=== PATIENT | female | born 1990 | race Caucasian/White ===

== ENCOUNTER 2018-07-31 09:37 | Outpatient (REF) | payer BC, SELFPAY ==
--- NOTE | 2018-07-31 08:30 | PAPFT_PTH ---
PATIENT: Concepcion Barksdale LOC: [facility]N U#:[id number] AGE/SX: 27/F ROOM: RE07/31/[address]: Gogo Staton : 1990 BED: DIS: 07/31/2018 SPEC #: [id number] RECD: 07/31/18 13:08 STATUS: GALINDO REQ #: [id number] MICHI: 07/31/18 08:[address]: Gogo Staton DEPT: [facility] Cytology RECD BY: Lizbeth Vogt Tissues: 1 - CX/ENDOCX FOR PAP SMEARS Procedures: PAP THIN PREP/UVM Screening Comments: [id number]
== END 2018-07-31 09:57 ==
LOC: NCHCN 09:37
PROVIDERS: PCP Nurse Practitioner Family; Visit Provider Nurse Practitioner Family
DX: Z00.00 Encounter for general adult medical examination without abnormal findings (principal); Z12.4 Encounter for screening for malignant neoplasm of cervix
CPT/HCPCS: 88142

== ENCOUNTER 2019-02-04 11:47 | Outpatient (CLI) | payer BC, SELFPAY ==
[2019-02-04 14:12] LABS: HCG Quant, Pregnancy 8311 mIU/mL (1-3)
== END 2019-02-04 12:07 ==
PROVIDERS: PCP Nurse Practitioner Family; Visit Provider Obstetrics & Gynecology
DX: O20.9 Hemorrhage in early pregnancy, unspecified (principal)
CPT/HCPCS: 36415; 86850; 86900; 86901; 84702

== ENCOUNTER 2019-02-05 09:22 | Outpatient (CLI) | payer BC, SELFPAY ==
--- NOTE | 2019-02-05 12:30 | DI.US_ITS ---
EXAM: US OB TRANSVAGINAL CLINICAL HISTORY: rule out ectopic HCG 8311 O20.9 HEMORRHAGE IN EARLY . TECHNIQUE: Ultrasound performed using standard protocol. COMPARISON: No exams were available for comparison FINDINGS: The uterus measures 8.3 x 4.7 x 5.7 cm. Right ovary is not seen. The left ovary measures 2.8 x 1.4 x 1.7 cm. Note is made of hemorrhagic material in the uterus which appears acoustically heterogeneous and measures 5.6 x 2.1 x 4.6 cm. There is a question regarding a corpus luteal cyst in the left ova ry measuring 2 x 1.5 x 1.6 cm. There is no acoustical evidence of ectopic . There is no franco dence of free pelvic fluid. IMPRESSION: Heterogeneous densities are demonstrated in the endometrial cavity, presumably representing blood. Th ere is no evidence of a viable fetus. There is no evidence of an ectopic these findings to be correlated with the HCG levels.
== END 2019-02-05 09:42 ==
PROVIDERS: PCP Nurse Practitioner Family; Visit Provider Obstetrics & Gynecology
DX: O20.9 Hemorrhage in early pregnancy, unspecified (principal); N83.12 Corpus luteum cyst of left ovary
CPT/HCPCS: 76817

== ENCOUNTER 2019-02-06 12:20 | Outpatient (CLI) | payer BC, SELFPAY ==
[2019-02-06 15:04] LABS: HCG Quant, Pregnancy 4774 mIU/mL (1-3)
== END 2019-02-06 12:40 ==
PROVIDERS: PCP Nurse Practitioner Family; Visit Provider Obstetrics & Gynecology
DX: O03.9 Complete or unspecified spontaneous abortion without complication (principal)
CPT/HCPCS: 36415; 84702

== ENCOUNTER 2019-02-12 09:38 | Outpatient (CLI) | payer BC, SELFPAY ==
[2019-02-12 12:32] LABS: HCG Quant, Pregnancy 1482 mIU/mL (1-3)
== END 2019-02-12 09:58 ==
PROVIDERS: Obstetrics & Gynecology; PCP Nurse Practitioner Family; Visit Provider Obstetrics & Gynecology
DX: O46.8X1 Other antepartum hemorrhage, first trimester (principal)
CPT/HCPCS: 36415; 84702

== ENCOUNTER 2020-04-26 03:20 | Outpatient (CLI) | payer BC, SELFPAY ==
[2020-04-26 09:15] LABS: HCG Quant, Pregnancy 463 mIU/mL (1-3); TSH 3.84 uIU/mL (0.36-3.74)
== END 2020-04-26 03:40 ==
PROVIDERS: PCP Nurse Practitioner Family; Visit Provider Nurse Practitioner Family
DX: N92.6 Irregular menstruation, unspecified (principal); Z86.39 Personal history of other endocrine, nutritional and metabolic disease
CPT/HCPCS: 36415; 84439; 84443; 84702

== ENCOUNTER 2020-05-22 03:49 | Outpatient (CLI) | payer BC, SELFPAY ==
[2020-05-22 09:02] LABS: TSH (W/Ref FT4) 3.65 uIU/mL (0.36-3.74)
== END 2020-05-22 04:09 ==
PROVIDERS: PCP Nurse Practitioner Family; Visit Provider Obstetrics & Gynecology Gynecology
DX: R79.89 Other specified abnormal findings of blood chemistry (principal); Z32.01 Encounter for pregnancy test, result positive
CPT/HCPCS: 36415; 84443

== ENCOUNTER 2020-05-31 19:29 | Outpatient (REF) | payer BC, SELFPAY ==
[2020-05-31 17:33] LABS: *AMPHETAMINES SCREEN URINE Negative (Negative); *BARBITURATES SCREEN URINE Negative (Negative); *BENZODIAZEPINES SCREEN URINE Negative (Negative); Cannabinoids THC Negative (Negative); Cocaine Screen,Urine Negative (Negative); METHADONE URINE SCREEN Negative (Negative); OPIATES URINE SCREEN Negative (Negative)
[2020-05-31 17:46] LABS: Tricyclic Antidepressants Negative (Negative)
[2020-06-01 15:46] LABS: Chlamydia Result Negative (Negative); GC Result Negative (Negative)
[2020-06-06 11:59] LABS: Buprenorphine Negative; Norbuprenorphine Negative
== END 2020-05-31 19:49 ==
LOC: LBN 19:29
PROVIDERS: PCP Nurse Practitioner Family; Visit Provider Advanced Practice Midwife
DX: Z34.91 Encounter for supervision of normal pregnancy, unspecified, first trimester (principal); Z11.3 Encounter for screening for infections with a predominantly sexual mode of transmission
CPT/HCPCS: 80307; 87491; 87591; 87086

== ENCOUNTER 2020-06-05 08:03 | Outpatient (CLI) | payer BC, SELFPAY ==
[2020-06-05 09:45] LABS: Kit/Specimen SENT
[2020-06-05 10:11] LABS: Abs Immature Grans 0.03 10^3/uL (0.0-0.06); Absolute Basophil Count 0.02 10^3/uL (0.0-0.2); Absolute Eosinophil Count 0.18 10^3/uL (0.0-0.7); Absolute Lymphocyte Count 2.44 10^3/uL (1.2-3.4); Absolute Monocyte Count 0.58 10^3/uL (0.1-0.8); Absolute Neutrophil Count 4.66 10^3/uL (1.2-6.7); Basophils % 0.3; Eosinophils % 2.3; HGB 12.7 g/dL (11.2-15.7); Immature Grans % 0.4; Lymphocytes % 30.8; MCH 31.2 pg (27.0-33.0); MCHC 35.3 % (32.0-36.0); MCV 88.5 fL (80-95); MPV 10.1 fL (8.0-11.0); Monocytes % 7.3; Neutrophils % 58.9; Nucleated RBC 0 %; Platelet Count 259 10^3/uL (130-400); RBC 4.07 10^6/uL (3.93-5.22); RDW-SD 38.5 fL; WBC 7.91 10^3/uL (4.4-10.8)
[2020-06-06 10:07] LABS: Hepatitis C Ab w Rflx HCV PCR Negative (Negative)
[2020-06-06 10:30] LABS: Rubella IgG Ab (UVM) Positive (See Note); Varicella IgG Antibody Positive (See Note)
[2020-06-06 11:41] LABS: Hepatitis B Surface Ag Negative (Negative)
[2020-06-06 12:32] LABS: HIV-1/2 Ag & Ab Screen Negative (Negative)
[2020-06-07 10:48] LABS: Syphilis Total Ab w/Reflex Nonreactive (Nonreactive)
[2020-06-12 00:54] LABS: Result Summary NEGATIVE; Specimen WB Whole Blood
[2020-06-12 15:16] LABS: Specimen WB Whole Blood
== END 2020-06-05 08:23 ==
PROVIDERS: PCP Nurse Practitioner Family; Visit Provider Advanced Practice Midwife
DX: Z34.91 Encounter for supervision of normal pregnancy, unspecified, first trimester (principal); Z36.89 Encounter for other specified antenatal screening; Z11.4 Encounter for screening for human immunodeficiency virus [HIV]; Z11.59 Encounter for screening for other viral diseases; Z01.84 Encounter for antibody response examination
CPT/HCPCS: 36415; 81329; 86787; 86803; 86850; 86900; 86901; 87340; 87389; 81220; 85025; 86762; 86780

== ENCOUNTER 2020-07-28 03:44 | Outpatient (CLI) | payer BC, SELFPAY ==
--- NOTE | 2020-07-28 07:00 | DI.US_ITS ---
EXAM: US OB 2-3 TRIMESTER CLINICAL HISTORY: 18 wk anatomy survey,Z34.90. TECHNIQUE: Transabdominal obstetrical ultrasound performed. COMPARISON: No exams were available for comparison FINDINGS:: Sonographic images demonstrate a single intrauterine gestation in variable position. Placenta: Posterior and fundal and grade 1 Predicted gestational age: 18 weeks 0 days Estimated date of delivery 29 December 2020: . BIOMETRIC DATA: heart rate motion is Dopplered at: 150 BPM. BPD: 40mm = 18+ 1 weeks HC: 151mm = 18+ 1 weeks AC: 127mm = 18+ 2 weeks FL: 26mm = 17+ 6 weeks EFW: 224 Grams = 51 % Sonographically assessed composite gestational age: 18+ 1 weeks Estimated date of delivery based on this ultrasound is: 28 December 2020 Amniotic fluid:. Amount of fluid is visually within normal limits. Anatomy survey: The heart, stomach, bladder, kidneys, brain, face and spine appear normal. Bot h upper and lower extremities appear normal. Three-vessel cord and cord insertion are unremarkable. IMPRESSION: size and weight are within the expected range. Normal size for dates. No abnormalities are detected. DATA REPOSITORY:
== END 2020-07-28 04:04 ==
PROVIDERS: PCP Nurse Practitioner Family; Visit Provider Advanced Practice Midwife
DX: Z34.92 Encounter for supervision of normal pregnancy, unspecified, second trimester (principal)
CPT/HCPCS: 76805

== ENCOUNTER 2020-10-06 03:12 | Outpatient (CLI) | payer BC, SELFPAY ==
[2020-10-06 10:58] LABS: HCT 32.1 % (36.0-46.0); HGB 10.8 g/dL (11.2-15.7); MCHC 33.6 % (32.0-36.0); MCV 95.3 fL (80-95); MPV 9.6 fL (8.0-11.0); Platelet Count 223 10^3/uL (130-400); RBC 3.37 10^6/uL (3.93-5.22); RDW 13.7 % (11.7-14.6); RDW-SD 47.9 fL; WBC 10.33 10^3/uL (4.4-10.8)
[2020-10-06 11:06] LABS: Glucose,1 Hr (Glucola) 137 mg/dL (80-140)
== END 2020-10-06 03:13 | disposition home or self-care (01) ==
LOC: LBO 03:12
PROVIDERS: Advanced Practice Midwife; PCP Nurse Practitioner Family; Visit Provider Advanced Practice Midwife
DX: Z34.93 Encounter for supervision of normal pregnancy, unspecified, third trimester (principal); Z3A.28 28 weeks gestation of pregnancy
CPT/HCPCS: 36415; 82950; 85027

== ENCOUNTER 2020-10-18 03:17 | Outpatient (CLI) | payer BC, SELFPAY ==
[2020-10-18 09:15] LABS: Glucose 1 Hour 151 mg/dL
[2020-10-18 10:54] LABS: Glucose 3 Hour 67 mg/dL
== END 2020-10-18 03:18 | disposition home or self-care (01) ==
PROVIDERS: PCP Nurse Practitioner Family; Visit Provider Advanced Practice Midwife
DX: Z34.93 Encounter for supervision of normal pregnancy, unspecified, third trimester (principal); Z3A.30 30 weeks gestation of pregnancy
CPT/HCPCS: 36415; 82951

== ENCOUNTER 2020-12-01 16:07 | Outpatient (REF) | payer BC, SELFPAY ==
[2020-12-01 17:05] LABS: *AMPHETAMINES SCREEN URINE Negative (Negative); *BARBITURATES SCREEN URINE Negative (Negative); *BENZODIAZEPINES SCREEN URINE Negative (Negative); Cannabinoids THC Negative (Negative); Cocaine Screen,Urine Negative (Negative); METHADONE URINE SCREEN Negative (Negative); OPIATES URINE SCREEN Negative (Negative)
[2020-12-01 17:06] LABS: Tricyclic Antidepressants Negative (Negative)
[2020-12-07 09:46] LABS: Buprenorphine Negative ng/mL (Cutoff: 5.0)
== END 2020-12-01 16:08 | disposition home or self-care (01) ==
LOC: LBN 16:07
PROVIDERS: PCP Nurse Practitioner Family; Visit Provider Advanced Practice Midwife
DX: Z34.93 Encounter for supervision of normal pregnancy, unspecified, third trimester (principal); Z36.85 Encounter for antenatal screening for Streptococcus B; Z3A.36 36 weeks gestation of pregnancy
CPT/HCPCS: 80307; 87081

== ENCOUNTER 2021-01-04 11:48 | Outpatient (CLI) | payer BC, SELFPAY ==
[2021-01-04 11:57] VITALS: BP 133/92; PULSE 81; TEMP 36.7
[2021-01-04 11:59] VITALS: BP 133/87; PULSE 81
[2021-01-04 12:00] VITALS: BP 133/92; PULSE 81
[2021-01-04 12:05] VITALS: BP 139/85; PULSE 83
[2021-01-04 12:16] VITALS: BP 139/85; PULSE 83; TEMP 37.3
[2021-01-04 12:50] LABS: HCT 36.9 % (36.0-46.0); HGB 12.3 g/dL (11.2-15.7); MCH 31.1 pg (27.0-33.0); MCHC 33.3 % (32.0-36.0); MCV 93.2 fL (80-95); MPV 10.1 fL (8.0-11.0); Platelet Count 199 10^3/uL (130-400); RBC 3.96 10^6/uL (3.93-5.22); RDW 13.9 % (11.7-14.6); RDW-SD 47.4 fL; WBC 11.21 10^3/uL (4.4-10.8)
[2021-01-04 13:04] LABS: ALT 15 U/L (14-59); AST 13 U/L (15-37); Albumin 2.8 g/dL (3.4-5.0); Alkaline Phosphatase 127 U/L (46-116); Anion Gap 8.5 mmol/L (3-11); BUN 9 mg/dL (7-18); Bilirubin, Total 0.3 mg/dL (0.2-1.0); CO2 25.5 mmol/L (21.0-32.0); CREATININE 0.7 mg/dL (0.55-1.02); Calcium 9.3 mg/dL (8.5-10.1); Chloride 105 mmol/L (98-107); Glucose 80 mg/dL (74-106); Potassium 4.3 mmol/L (3.5-5.1); Sodium 139 mmol/L (136-145); Total Protein 6.7 g/dL (6.4-8.2); Uric Acid 5.7 mg/dL (2.6-6.0)
[2021-01-04 13:44] LABS: COMMENT (LAB VIEW ONLY) 80.25 mg/dL; PROTEIN 11.1 mg/dL; Prot/Crea Ur Ratio 0.13
--- NOTE | 2021-01-04 14:07 | PDOC.NST_ITS ---
Date of service: 01/04/21 Time of Service: 14:07 NST Evaluation Reason for NST Reasons for Nonstress Test: POSTDATES Gestational Age Gestational Age in Weeks and Days: 40 Weeks and 6Days Test and Monitor Explained Test/Monitor Explained: Test Explained, Monitor Explained and Patient Verbalized Understanding Vital Signs Blood Pressure: 139/85 Pulse: 83 Temperature: 99.1 F NST Information Date on Monitor: 01/04/21 Time on Monitor: 12:00 Date off Monitor: 01/04/21 NST Interventions: None NST Evaluation Patient States Movement: Present FHR Baseline: 130 Variability: Moderate 6-25 bpm Accelerations: 15x15 Decelerations: None NST Results: Reactive Note NST Note Note: Concepcion is here for a post dates NST and KILEY. KIELY is 11.9 by bedside US performed by Jovita Aldana.P 139/85. Preeclampsia labs drawn. SVE 1.5/60/- 2. Induction of labor planned for 01/07. NST Reviewed and Verified by: Puja Reyes
[2021-01-04 14:10] VITALS: BP 139/85; PULSE 83; TEMP 37.3
== END 2021-01-04 12:46 | disposition home or self-care (01) ==
LOC: BCD 11:48 → OBS 11:50
PROVIDERS: PCP Nurse Practitioner Family; Visit Provider Advanced Practice Midwife
DX: O48.0 Post-term pregnancy (principal); Z3A.40 40 weeks gestation of pregnancy
CPT/HCPCS: 59025; 80053; 85027; 82565; 84156; 84550

== ENCOUNTER 2021-01-07 08:52 | Observation (INO) | payer BC, SELFPAY ==
[2021-01-07 07:57] VITALS: BP 142/84; PULSE 86; TEMP 36.6
--- NOTE | 2021-01-07 08:55 | W.PM.OBHPL1 ---
Date of service: 01/07/21 Time of Service: 08:55 Assessment and Plan Assessment and plan (1) Elective induction of labor planned: Status: Acute Assessment and plan: Admit to observation at the Center. Cook balloon inserted without difficulty and 60 cc infused in each balloon. Concepcion tolerated this well. Plan was made with Concepcion to remain on the monitor for 1 hour post- insertion and then return home to await active labor. She was instructed to return to the center in 12 hours if the balloon is still in place. Protein creatinene ratio sent. Will continue to monitor B.P. every 15 minutes post-insertion. Plan reviewed with Dr. Lindsay who is the on-call MD today. Will re-assess cervical change this evening. OB-HPI Labor/Delivery History of Present Illness Reason for Visit: NST Chief Complaint: Scheduled Induction of Labor (Outpatient cervical ripening) Indication for Induction: Post Date (41+3 weeks). BURT Calculator Estimated Delivery Date Method Current WG Current Estimate 12/29/20 LMP (Certain) 41w 2d Other Estimates 01/03/21 Ultrasound #1 40w 4d Comments: Concepcion is here for cervical ripening with her Tyson. Options for cervical ripening methods discussed and Concepcion opts for outpatient cervical ripening with the Cook balloon. KILEY 11.9 and Preecampsia panel neg 01/04. History of Present Expected Delivery Route/Plan - CNM FOB/ - Tyson Barksdale (his first baby) BB no circ GBS neg Specific Issues/Plan 1. Desires [place], SMA, CF - drawn 06/05/19 1a. [place] result low prob x3, male 1b. CF and SMA carrier screen negative 2. Desires LC consult after 36 wks 3. Not planning to get COVID vaccine, also declines TDaP and flu shots 4. Glucola at 28 wks 137, 3 hr GTT nml x4 PFSH Medical History (Updated 01/07/21 @ 09:01 by Puja Reyes CNM) Positive test Seasonal allergic rhinitis Family History (Updated 05/31/20 @ 13:51 by Puja Reyes CNM) Mother Colon cancer Mets to liver Thyroid disease Graves disease - resolved spontaneously Father Hypertension Heart disease Lewy body dementia COPD (chronic obstructive pulmonary disease) Brother Thyroid disease paternal 1/2 brother Social History Smoking/Tobacco Use Status: Never Smoking risk assessment performed?: Yes Drug use: Never Female Reproductive History Menstrual control method: none History History 3 Para 0 Hx # Term Pregnancies 0 Multiple births 0 Hx # Pregnancies 0 Ectopic pregnancies 0 AB induced 0 Hx Number of Living Children 0 AB spontaneous 2 Meds Allergies and Home Medications Allergies Allergy/AdvReac Type Severity Reaction Status Date / Time erythromycin base Allergy Severe SHORTNESS Verified 12/27/20 15:10 [Erythromycin Base] OF BREATH, SHARP SHOOTING PAINS NSAIDS (Non-Steroidal Allergy Severe Anaphylaxsi Verified 12/27/20 15:10 Anti-Inflamma s thimerosal Allergy Intermediate SHOOTING Verified 12/27/20 15:10 PAINS, SHORTNESS OF BREATH, SWELLING Home Medications Medication Instructions Recorded Confirmed Type epinephrine [Epipen] 0.3 mg IM 08/24/12 12/21/20 History prenat.vits,elio,eom-vvle-vpzko 1 tab PO DAILY 08/10/19 12/21/20 History Exam Physical Exam Vital Signs Reviewed: Yes Constitutional Constitutional: no acute distress Detailed Labor and Delivery Exam Dilation: 2 Effacement (%): 75 station: -1 Cervix position: posterior Consistency: soft Villa Score: Cervical Points Exam 0 1 2 3 Dilation Closed 1-2cm 3-4 cm 5-6cm Effacement 0-30% 40-50% 60-70% 80% Consistency Firm Medium Soft Station -3 -2 -1,0 +1,+2 Position Posterior Mid Anterior Amniotic Membrane Status: Intact Contraction Frequency(min): occasional Contraction Duration(sec): 50 Contraction Intensity: Mild Fetus A Heart Rate Baseline: 130 Monitor Accelerations: 15 X 15 Monitor Decelerations: None Variability: Moderate (6-25 BPM) Presentation: Cephalic Categories: Category I Risk Assessment Risk for Shoulder Dystocia Historical/Initial OB: POSITIVE FOR: Pre- BMI>30; NEGATIVE FOR: Pelvic Abnormality, Previous Shoulder Dystocia or Previous Macrosomia 40 Weeks: POSTIVE FOR: Maternal Weight Gain >40lb and Post Dates; NEGATIVE FOR: EFW> 4500 gms Increased Risk?: Yes Delivery Plan @ 36wks: NVD planned, BMI discussed.KH Delivery Plan @ 40 wks: cervical ripening at 41 +3 weeks Risk for Pre-Eclampsia Yes, if one or more: NEGATIVE FOR: Hx Pre-E/Gest HTN, Chronic HTN, Multiple Gestation, Pre-gestational DM, Renal Disease, Systemic Lupus or APA Syndrome Yes, if 2 or more: POSITIVE FOR: Nulliparity; NEGATIVE FOR: Age>= 35 yrs, >10yr btwn pregnancies, BMI>30, ethinicty, Mother/Sister w/ Pre-E or Previous IUGR Risk for Post- Hemorrhage Initial: NEGATIVE FOR: Multiple Gestation, Previous PPH, Known Clotting Deficiency, Grand Multiparity or Anticoagulation At Risk?: No Risks Reviewed Risks Reviewed Upon Admission: Yes
[2021-01-07 09:08] VITALS: BP 142/97; PULSE 74
[2021-01-07 09:23] VITALS: BP 133/86; PULSE 75
[2021-01-07 09:38] VITALS: BP 140/84; PULSE 80
[2021-01-07 09:53] VITALS: BP 131/77; PULSE 74
[2021-01-07 10:01] LABS: HCT 34.4 % (36.0-46.0); HGB 11.5 g/dL (11.2-15.7); MCH 31.2 pg (27.0-33.0); MCHC 33.4 % (32.0-36.0); MCV 93.2 fL (80-95); MPV 10.1 fL (8.0-11.0); Platelet Count 184 10^3/uL (130-400); RBC 3.69 10^6/uL (3.93-5.22); RDW 13.9 % (11.7-14.6); RDW-SD 47.2 fL; WBC 11.71 10^3/uL (4.4-10.8)
[2021-01-07 10:39] LABS: ALT 17 U/L (14-59); AST 16 U/L (15-37); Albumin 2.7 g/dL (3.4-5.0); Alkaline Phosphatase 131 U/L (46-116); Anion Gap 8.2 mmol/L (3-11); BUN 11 mg/dL (7-18); Bilirubin, Total 0.3 mg/dL (0.2-1.0); CO2 24.8 mmol/L (21.0-32.0); CREATININE 0.8 mg/dL (0.55-1.02); Calcium 8.8 mg/dL (8.5-10.1); Chloride 104 mmol/L (98-107); Glucose 86 mg/dL (74-106); Sodium 137 mmol/L (136-145); Total Protein 6.5 g/dL (6.4-8.2)
[2021-01-07 11:00] LABS: PROTEIN 10.2 mg/dL
[2021-01-07 11:13] LABS: COMMENT (LAB VIEW ONLY) 66.28 mg/dL; Prot/Crea Ur Ratio 0.15
== END 2021-01-07 10:04 | disposition home or self-care (01) ==
LOC: OBS 09:58 → BCD 01-08 14:34 → OBS 01-08 14:34
PROVIDERS: Advanced Practice Midwife; Admitting Provider Advanced Practice Midwife; PCP Nurse Practitioner Family; Visit Provider Advanced Practice Midwife
DX: O48.0 Post-term pregnancy (principal); Z3A.41 41 weeks gestation of pregnancy
CPT/HCPCS: 59200; 36415; 80053; 85027; 59025; 82565; 84156; 84550; G0378

== ENCOUNTER 2021-01-07 20:33 | Inpatient (IN) | payer BC, SELFPAY ==
[2021-01-07 21:06] VITALS: BP 138/89; PULSE 81
[2021-01-07 21:07] VITALS: PULSE 85; O2SAT 97
[2021-01-07 21:15] VITALS: TEMP 36.9
[2021-01-07] MEDS: miSOPROStol 25 MCG TAB PO (21:47)
[2021-01-07 21:52] LABS: HCT 35.2 % (36.0-46.0); HGB 11.8 g/dL (11.2-15.7); MCH 31.2 pg (27.0-33.0); MCHC 33.5 % (32.0-36.0); MCV 93.1 fL (80-95); MPV 9.9 fL (8.0-11.0); Platelet Count 197 10^3/uL (130-400); RBC 3.78 10^6/uL (3.93-5.22); RDW 13.9 % (11.7-14.6); RDW-SD 47.8 fL; WBC 14.16 10^3/uL (4.4-10.8)
--- NOTE | 2021-01-07 22:38 | W.PM.OBHPL1 ---
Date of service: 01/07/21 Time of Service: 22:38 Assessment and Plan Assessment and plan (1) Elective induction of labor planned: Status: Acute Assessment and plan: Admit to Center. Will administer misoprostol PO every 4 hours for continued cervical ripening. Comfort measures. Covid- 19 test. Anticipate . OB-HPI Labor/Delivery History of Present Illness Reason for Visit: INDUCTION OF LABOR Chief Complaint: Scheduled Induction of Labor Indication for Induction: Post Date. BURT Calculator Estimated Delivery Date Method Current WG Current Estimate 12/29/20 LMP (Certain) 41w 2d Other Estimates 01/03/21 Ultrasound #1 40w 4d Comments: cervical ripening balloon was placed this morning. Concepcion has had mild contractions throughout the day and returns for removal of the balloon and re-assessment. History of Present Expected Delivery Route/Plan - CNM FOB/ - Tyson Barksdale (his first baby) BB no circ GBS neg Specific Issues/Plan 1. Desires [place], SMA, CF - drawn 06/05/19 1a. [place] result low prob x3, male 1b. CF and SMA carrier screen negative 2. Desires LC consult after 36 wks 3. Not planning to get COVID vaccine, also declines TDaP and flu shots 4. Glucola at 28 wks 137, 3 hr GTT nml x4 PFSH Medical History (Updated 01/07/21 @ 09:01 by Puja Reyes CNM) Positive test Seasonal allergic rhinitis Family History (Updated 05/31/20 @ 13:51 by Puja Reyes CNM) Mother Colon cancer Mets to liver Thyroid disease Graves disease - resolved spontaneously Father Hypertension Heart disease Lewy body dementia COPD (chronic obstructive pulmonary disease) Brother Thyroid disease paternal 1/2 brother Social History Smoking/Tobacco Use Status: Never Smoking risk assessment performed?: Yes Drug use: Never Female Reproductive History Menstrual control method: none History History 3 Para 0 Hx # Term Pregnancies 0 Multiple births 0 Hx # Pregnancies 0 Ectopic pregnancies 0 AB induced 0 Hx Number of Living Children 0 AB spontaneous 2 Meds Allergies and Home Medications Allergies Allergy/AdvReac Type Severity Reaction Status Date / Time erythromycin base Allergy Severe SHORTNESS Verified 01/07/21 21:09 [Erythromycin Base] OF BREATH, SHARP SHOOTING PAINS NSAIDS (Non-Steroidal Allergy Severe Anaphylaxsi Verified 01/07/21 21:09 Anti-Inflamma s thimerosal Allergy Intermediate SHOOTING Verified 01/07/21 21:09 PAINS, SHORTNESS OF BREATH, SWELLING Home Medications Medication Instructions Recorded Confirmed Type epinephrine [EpiPen] 0.3 mg IM 08/24/12 12/21/20 History prenat.vits,elio,nxj-wbyy-uwwpo 1 tab PO DAILY 08/10/19 01/07/21 History Exam Physical Exam Vital signs: Temp Pulse BP Pulse Ox 98.4 F 85 138/89 97 01/07/21 21:15 01/07/21 21:07 01/07/21 21:06 01/07/21 21:07 Vital Signs Reviewed: Yes Constitutional Constitutional: no acute distress Detailed Labor and Delivery Exam Dilation: 3 Effacement (%): 75 station: -2 Cervix position: posterior Consistency: soft Villa Score: Cervical Points Exam 0 1 2 3 Dilation Closed 1-2cm 3-4 cm 5-6cm Effacement 0-30% 40-50% 60-70% 80% Consistency Firm Medium Soft Station -3 -2 -1,0 +1,+2 Position Posterior Mid Anterior Amniotic Membrane Status: Intact Contraction Frequency(min): every 4-5 Contraction Duration(sec): 60 Contraction Intensity: Mild/Moderate Fetus A Heart Rate Baseline: 130 Monitor Accelerations: 15 X 15 Monitor Decelerations: None Variability: Moderate (6-25 BPM) Presentation: Cephalic Categories: Category I Est. Weight: 9 lb Respiratory Exam Respiratory Exam: Normal Cardiovascular Exam Cardiovascular Exam: Normal Rectal Exam Rectal Exam: Normal Exam Exam: Normal Extremities Exam Extremities Exam: Normal Back/Spine/Pelvis Exam Pelvis Adequate: Yes Skin Exam Skin Exam: Normal Psychiatric Exam Psychiatric Exam: Normal Results Results Group Beta Strep: Negative Blood Type: A+ Rubella Status: Immune Varicella Immunity: Immune Abnormal Lab Findings: Abnormal Labs 01/07/21 21:43 WBC 14.16 H RBC 3.78 L Hct 35.2 L Risk Assessment Risk for Shoulder Dystocia Historical/Initial OB: POSITIVE FOR: Pre- BMI>30; NEGATIVE FOR: Pelvic Abnormality, Previous Shoulder Dystocia or Previous Macrosomia 40 Weeks: POSTIVE FOR: Maternal Weight Gain >40lb and Post Dates; NEGATIVE FOR: EFW> 4500 gms Increased Risk?: Yes Delivery Plan @ 36wks: NVD planned, BMI discussed.KH Delivery Plan @ 40 wks: cervical ripening at 41 +3 weeks Risk for Pre-Eclampsia Daily Dose ASA Indicated: No Yes, if one or more: NEGATIVE FOR: Hx Pre-E/Gest HTN, Chronic HTN, Multiple Gestation, Pre-gestational DM, Renal Disease, Systemic Lupus or APA Syndrome Yes, if 2 or more: POSITIVE FOR: Nulliparity; NEGATIVE FOR: Age>= 35 yrs, >10yr btwn pregnancies, BMI>30, ethinicty, Mother/Sister w/ Pre-E or Previous IUGR Risk for Post- Hemorrhage Initial: NEGATIVE FOR: Multiple Gestation, Previous PPH, Known Clotting Deficiency, Grand Multiparity or Anticoagulation At Risk?: No Risks Reviewed Risks Reviewed Upon Admission: Yes
[2021-01-07 22:51] LABS: COVID-19 PCR Negative (Negative)
[2021-01-08] VITALS (12 sets, daily range): BP systolic 113–136; BP diastolic 66–84; PULSE 68–81; RESP 16–18; TEMP 36.4–36.7; O2SAT 91–100
[2021-01-08] MEDS: miSOPROStol 25 MCG TAB PO (02:01)
[2021-01-08] MEDS: miSOPROStol 50 MCG TAB PO (06:10)
--- NOTE | 2021-01-08 08:59 | W.PM.OBNL1 ---
Date of service: 01/08/21 Time of Service: 08:59 Pelvic Exam Dilation: 4 Effacement (%): 85 station: -2 Cervix Position: posterior Consistency: soft Vaginal Exam Presentation: Cephalic Contractions Monitor Mode: External Contraction Frequency(min): every 3-4 Contraction Duration(sec): 50-60 Intensity: Mild/Moderate Fetus A Monitor: External (US) Heart Rate Baseline: 140 Presentation: Vertex Variability: Moderate (6-25 BPM) FHR Rhythm: Regular Accelerations: 15 X 15 Decelerations: None Amniotic Membrane Status: Intact Assessment and Plan Assessment and plan (1) Elective induction of labor planned: Status: Acute Assessment and plan: Coping well with mild contractions. SVE performed and cervix 4 cms. Category 1 tracing. Comfort measures provided. Discussed pitocin infusion if spontaneous labor does not occur. Anticipate . Objective Abnormal lab results 01/07/21 Range/Units 21:43 WBC 14.16 H (4.4-10.8) 10^3/uL RBC 3.78 L (3.93-5.22) 10^6/uL Hct 35.2 L (36.0-46.0) % Temp Pulse Resp BP Pulse Ox 97.5 F L 68 16 134/84 100 01/08/21 06:12 01/08/21 08:12 01/08/21 02:04 01/08/21 08:12 01/08/21 08:11 Laboratory Results WBC 14.16 10^3/uL (4.4-10.8) H 01/07/21 21:43 RBC 3.78 10^6/uL (3.93-5.22) L 01/07/21 21:43 Hgb 11.8 g/dL (11.2-15.7) 01/07/21 21:43 Hct 35.2 % (36.0-46.0) L 01/07/21 21:43 MCV 93.1 fL (80-95) 01/07/21 21:43 MCH 31.2 pg (27.0-33.0) 01/07/21 21:43 MCHC 33.5 % (32.0-36.0) 01/07/21 21:43 RDW 13.9 % (11.7-14.6) 01/07/21 21:43 Plt Count 197 10^3/uL (130-400) 01/07/21 21:43 MPV 9.9 fL (8.0-11.0) 01/07/21 21:43 COVID-19 Source NASOPHARYX 01/07/21 21:55 SARS-CoV-2 (PCR) Negative (Negative) 01/07/21 21:55 Patient ABO/Rh A Positive 01/07/21 21:43 Antibody Screen NEGATIVE 01/07/21 21:43 Subjective Patient Reports: No new Complaints Results Hemoglobin/Hematocrit: Hgb 11.8 g/dL (11.2-15.7) 01/07/21 21:43 Hct 35.2 % (36.0-46.0) L 01/07/21 21:43 Abnormal Lab Findings: Abnormal Labs 01/07/21 21:43 WBC 14.16 H RBC 3.78 L Hct 35.2 L
--- NOTE | 2021-01-08 13:45 | W.PM.OBNL1 ---
Date of service: 01/08/21 Time of Service: 13:45 Pelvic Exam ROM Plus: Positive Contractions Monitor Mode: Palpation Contraction Frequency(min): every 4 minutes Contraction Duration(sec): 60 Intensity: Moderate Fetus A Monitor: Doppler Heart Rate Baseline: 130 Presentation: Cephalic Variability: Moderate (6-25 BPM) Categories: Category I FHR Rhythm: Regular Accelerations: 15 X 15 Decelerations: None Assessment and Plan Assessment and plan (1) Spontaneous rupture of amniotic membranes: Status: Acute (2) Elective induction of labor planned: Status: Acute Assessment and plan: Coping well with contractions. SVE deferred . Category 1 tracing. Comfort measures provided. Anticipate Objective Abnormal lab results 01/07/21 Range/Units 21:43 WBC 14.16 H (4.4-10.8) 10^3/uL RBC 3.78 L (3.93-5.22) 10^6/uL Hct 35.2 L (36.0-46.0) % Temp Pulse Resp BP Pulse Ox 97.5 F L 76 16 135/80 99 01/08/21 06:12 01/08/21 13:25 01/08/21 02:04 01/08/21 13:25 01/08/21 10:27 Laboratory Results WBC 14.16 10^3/uL (4.4-10.8) H 01/07/21 21:43 RBC 3.78 10^6/uL (3.93-5.22) L 01/07/21 21:43 Hgb 11.8 g/dL (11.2-15.7) 01/07/21 21:43 Hct 35.2 % (36.0-46.0) L 01/07/21 21:43 MCV 93.1 fL (80-95) 01/07/21 21:43 MCH 31.2 pg (27.0-33.0) 01/07/21 21:43 MCHC 33.5 % (32.0-36.0) 01/07/21 21:43 RDW 13.9 % (11.7-14.6) 01/07/21 21:43 Plt Count 197 10^3/uL (130-400) 01/07/21 21:43 MPV 9.9 fL (8.0-11.0) 01/07/21 21:43 COVID-19 Source NASOPHARYX 01/07/21 21:55 SARS-CoV-2 (PCR) Negative (Negative) 01/07/21 21:55 Patient ABO/Rh A Positive 01/07/21 21:43 Antibody Screen NEGATIVE 01/07/21 21:43 Subjective Patient Reports: No new Complaints Interval history since last seen: Concepcion reports that contractions are now stronger. She is using the ball with good effect. She hopes to avoid pitocin induction and prefers to use other methods prior to initiating pitocin. She has been rolling her nipples. After rolling her nipples for 30 minutes, her membranes ruptured spontaneously for clear fluid. Results Hemoglobin/Hematocrit: Hgb 11.8 g/dL (11.2-15.7) 01/07/21 21:43 Hct 35.2 % (36.0-46.0) L 01/07/21 21:43 Abnormal Lab Findings: Abnormal Labs 01/07/21 21:43 WBC 14.16 H RBC 3.78 L Hct 35.2 L
[2021-01-08] MEDS: Nalbuphine 10 MG/ML AMP SC ×2 (15:01→18:54)
[2021-01-08] MEDS: Normal Saline Flush 10 ML SYR IVP (15:24)
--- NOTE | 2021-01-08 15:35 | ANES.PREOP_ITS ---
General Info Date of Service Date Performed: 01/09/21 Height: 5 ft 1.02 in Weight: 97.976 kg Body Mass Index (BMI): 40.8 Meds Allergies and Home Medications Allergies Allergy/AdvReac Type Severity Reaction Status Date / Time erythromycin base Allergy Severe SHORTNESS Verified 01/07/21 21:09 [Erythromycin Base] OF BREATH, SHARP SHOOTING PAINS NSAIDS (Non-Steroidal Allergy Severe Anaphylaxsi Verified 01/07/21 21:09 Anti-Inflamma s thimerosal Allergy Intermediate SHOOTING Verified 01/07/21 21:09 PAINS, SHORTNESS OF BREATH, SWELLING Home Medication Medication Instructions Recorded epinephrine [EpiPen] 0.3 mg IM PRN PRN 08/24/12 prenat.vits,elio,waf-cmfo-vpkra 1 tab PO DAILY 08/10/19 Current Visit Medications: Current Medications Generic Name Dose Route Start Last Admin Trade Name Freq PRN Reason Stop Dose Admin IV Miscellaneous Supplies 1 each 01/08/21 15:30 Iv Access IV [facility]ED [facility] Sodium Chloride 0 ml 01/08/21 15:22 01/08/21 15:24 Normal Saline Flush 10 Ml Syr IVP 10 ml PRN PRN Administration Sodium Chloride 0 ml 01/08/21 15:22 Normal Saline Flush 10 Ml Syr IVP PRN PRN Terbutaline Sulfate 0.25 mg 01/07/21 21:29 Terbutaline 1 Mg/Ml Vial SC PRN PRN Zolpidem Tartrate 10 mg 01/08/21 21:00 Zolpidem 5 Mg Tab PO 2100 ORESTES PFSH Active Problems Active Problems: Problem Status Onset Code Spontaneous rupture of amniotic membranes Elective induction of labor planned Elevated glucose level R73.09 BMI 31.0-31.9,adult Z68.31 Z34.90 Positive test Z32.01 Status post arthroscopic knee surgery Z98.890 H/O knee surgery Z98.890 Spontaneous O03.9 Medical History Medical History (Updated 01/09/21 @ 00:20 by Puja Reyes CNM) Abnormality of labor Positive test Seasonal allergic rhinitis Tobacco Smoking/Tobacco Use Status: Never Substance Use Substance use: Never Prental History History 3 Para 0 Hx # Term Pregnancies 0 Multiple births 0 Hx # Pregnancies 0 Ectopic pregnancies 0 AB induced 0 Hx Number of Living Children 0 AB spontaneous 2 Vital Signs and Lab Results Vital Signs Most Recent Vital Signs in EMR: Most Recent Vital Signs Temp Pulse Resp BP Pulse Ox 36.4 C L 76 16 135/80 99 01/08/21 06:12 01/08/21 13:25 01/08/21 02:04 01/08/21 13:25 01/08/21 10:27 Lab Results Result Diagrams: 01/07/21 21:43 Blood Type / Crossmatch: Patient ABO/Rh A Positive 01/07/21 21:43 01/07/21 Antibody Screen NEGATIVE 01/07/21 21:43 01/07/21 Complete Blood Count: White Blood Count 14.16 10^3/uL (4.4-10.8) H 01/07/21 21:43 01/07/21 Red Blood Count 3.78 10^6/uL (3.93-5.22) L 01/07/21 21:43 01/07/21 Hemoglobin 11.8 g/dL (11.2-15.7) 01/07/21 21:43 01/07/21 Hematocrit 35.2 % (36.0-46.0) L 01/07/21 21:43 01/07/21 Platelet Count 197 10^3/uL (130-400) 01/07/21 21:43 01/07/21 Complete Metabolic Panel: Sodium Level 137 mmol/L (136-145) 01/07/21 09:42 01/07/21 Potassium Level 4.0 mmol/L (3.5-5.1) 01/07/21 09:42 01/07/21 Chloride Level 104 mmol/L (98-107) 01/07/21 09:42 01/07/21 Carbon Dioxide Level 24.8 mmol/L (21.0-32.0) 01/07/21 09:42 01/07/21 Blood Urea Nitrogen 11 mg/dL (7-18) 01/07/21 09:42 01/07/21 Creatinine 0.8 mg/dL (0.55-1.02) 01/07/21 09:42 01/07/21 Estimated GFR/1.73 m2 >= 60.00 (mL/min/1.73m2) 01/07/21 09:42 01/07/21 Calcium Level 8.8 mg/dL (8.5-10.1) 01/07/21 09:42 01/07/21 Albumin 2.7 g/dL (3.4-5.0) L 01/07/21 09:42 01/07/21 Glucose Level 86 mg/dL (74-106) 01/07/21 09:42 01/07/21 Liver Function Panel: Alanine Aminotransferase (ALT/SGPT) 17 U/L (14-59) 01/07/21 09:42 01/07/21 Aspartate Amino Transf (AST/SGOT) 16 U/L (15-37) 01/07/21 09:42 01/07/21 Coagulation Panel: No Data to Display Cardiac Panel: No Data to Display Arterial Blood Gas: No Data to Display Venous Blood Gas: No Data to Display Pancreas Panel: No Data to Display Thyroid Panel: No Data to Display Infectious Disease: Coronavirus (COVID-19)(PCR) Negative (Negative) 01/07/21 21:55 01/07/21 Coronavirus 2019 Source NASOPHARYX 01/07/21 21:55 01/07/21 Blood Cultures: No Data to Display Toxicology Panel: No Data to Display Panel: No Data to Display Anesthesia Assessment and Plan Anesthesia History Personal History: No History of Anesthesia Complications Family History: No Family History of Anesthesia Complications Exercise Tolerance Exercise Tolerance: Metabolic Equivalents>4 Pertinent Negatives Pertinent Negatives: No Symptoms of GERD, No Major Cardiovascular Symptoms or Complaints, No Major Pulmonary Symptoms or Complaints and No History of CVA/TIA Cardiac & Pulmonary Exam Cardiac Exam: Normal S1/S2 Heart Sounds Pulmonary Exam: Clear Bilateral Breath Sounds Airway Exam Known Difficult Airway: No Mallampati Class: 2 Mouth Opening: Normal (> 3cm) Thyromental Distance: Greater than 3 cm Neck Range of Motion: Full ROM Neck Circumference: Normal Teeth Condition: Normal Dentition ASA Classification ASA Score: ASA 2 Emergency Case?: Yes NPO Status NPO Status: NPO Clears >2 hours, Solids >8 hours Status Status: Confirmed Anesthesia Plan Resuscitation Status: Full Code Anesthesia Technique: Spinal Anesthesia Airway Planned: Natural Airway Monitors Used: Standard Monitors Preoperative Comments:: Failure to progress
[2021-01-08] MEDS: Lactated Ringers 500 ML IV (15:40)
--- NOTE | 2021-01-08 19:03 | W.PM.OBNL1 ---
Date of service: 01/08/21 Time of Service: 19:03 Pelvic Exam Dilation: 8 Effacement (%): 90 station: 0 Position: TAMIKO Cervix Position: mid Consistency: soft Vaginal Exam Presentation: Vertex Pooling: Positive Contractions Monitor Mode: External Contraction Frequency(min): every 3 -4 minutes Contraction Duration(sec): 60 Intensity: Moderate/Strong Fetus A Monitor: Doppler Heart Rate Baseline: 120 Presentation: Cephalic Decelerations: None Assessment and Plan Assessment and plan (1) Spontaneous rupture of amniotic membranes: Status: Acute (2) Elective induction of labor planned: Status: Acute Assessment and plan: comfort measures. Anticipate . Objective Abnormal lab results 01/07/21 Range/Units 21:43 WBC 14.16 H (4.4-10.8) 10^3/uL RBC 3.78 L (3.93-5.22) 10^6/uL Hct 35.2 L (36.0-46.0) % Temp Pulse Resp BP Pulse Ox 98.1 F 74 18 133/82 98 01/08/21 17:02 01/08/21 17:02 01/08/21 17:02 01/08/21 17:02 01/08/21 17:02 Laboratory Results WBC 14.16 10^3/uL (4.4-10.8) H 01/07/21 21:43 RBC 3.78 10^6/uL (3.93-5.22) L 01/07/21 21:43 Hgb 11.8 g/dL (11.2-15.7) 01/07/21 21:43 Hct 35.2 % (36.0-46.0) L 01/07/21 21:43 MCV 93.1 fL (80-95) 01/07/21 21:43 MCH 31.2 pg (27.0-33.0) 01/07/21 21:43 MCHC 33.5 % (32.0-36.0) 01/07/21 21:43 RDW 13.9 % (11.7-14.6) 01/07/21 21:43 Plt Count 197 10^3/uL (130-400) 01/07/21 21:43 MPV 9.9 fL (8.0-11.0) 01/07/21 21:43 COVID-19 Source NASOPHARYX 01/07/21 21:55 SARS-CoV-2 (PCR) Negative (Negative) 01/07/21 21:55 Patient ABO/Rh A Positive 01/07/21 21:43 Antibody Screen NEGATIVE 01/07/21 21:43 Subjective Patient Reports: No new Complaints Interval history since last seen: Concepicon is using the tub with good effect. She is using nitrous oxide and received 2 doses of nubain 10 mg SC which is having excellent effect. She had wanted an epidural and an I.V. was started for that but she changed her mind after receiving nubain. Results Hemoglobin/Hematocrit: Hgb 11.8 g/dL (11.2-15.7) 01/07/21 21:43 Hct 35.2 % (36.0-46.0) L 01/07/21 21:43 Abnormal Lab Findings: Abnormal Labs 01/07/21 21:43 WBC 14.16 H RBC 3.78 L Hct 35.2 L
--- NOTE | 2021-01-08 22:26 | W.PM.OBNL1 ---
Date of service: 01/08/21 Time of Service: 22:26 Pelvic Exam Dilation: 10 Effacement (%): 100 station: +1 Position: TAMIKO Vaginal Exam Presentation: Cephalic Contractions Monitor Mode: External Contraction Frequency(min): every 3 minutes Contraction Duration(sec): 50-60 Intensity: Strong Fetus A Monitor: Doppler Heart Rate Baseline: 135 Presentation: Vertex Variability: Moderate (6-25 BPM) Categories: Category I FHR Rhythm: Regular Accelerations: 15 X 15 Decelerations: None Assessment and Plan Assessment and plan (1) Elective induction of labor planned: Status: Acute Assessment and plan: Will re-assess for descent in 1 hour and allow patient to rest as she wishes. I.V. bolus of remainder of I.V. bag ( 400 cc) and assess for urge to void. Objective Temp Pulse Resp BP Pulse Ox 98.1 F 74 18 113/66 98 01/08/21 17:02 01/08/21 20:01 01/08/21 20:01 01/08/21 20:01 01/08/21 17:02 Laboratory Results WBC 14.16 10^3/uL (4.4-10.8) H 01/07/21 21:43 RBC 3.78 10^6/uL (3.93-5.22) L 01/07/21 21:43 Hgb 11.8 g/dL (11.2-15.7) 01/07/21 21:43 Hct 35.2 % (36.0-46.0) L 01/07/21 21:43 MCV 93.1 fL (80-95) 01/07/21 21:43 MCH 31.2 pg (27.0-33.0) 01/07/21 21:43 MCHC 33.5 % (32.0-36.0) 01/07/21 21:43 RDW 13.9 % (11.7-14.6) 01/07/21 21:43 Plt Count 197 10^3/uL (130-400) 01/07/21 21:43 MPV 9.9 fL (8.0-11.0) 01/07/21 21:43 COVID-19 Source NASOPHARYX 01/07/21 21:55 SARS-CoV-2 (PCR) Negative (Negative) 01/07/21 21:55 Patient ABO/Rh A Positive 01/07/21 21:43 Antibody Screen NEGATIVE 01/07/21 21:43 Subjective Patient Reports: New Complaints Interval history since last seen: Concepcion progressed to an anterior rim in the tub and began bearing down. Her pushes were ineffective in the tub and the anterior rim persisted. She moved to the stool to continue pushing and was found to be fully dilated there. She pushed for approximately 30 minutes on the stool and moved to the bed because her foot was experiencing numbness. She is lying on her right side and resting and she requested to resume nitrous oxide for the pain. She attempted pushing again on her right side for 3 contractions and reported that she did not feel the urge to push and in fact there was no descent with pushing efforts. She was encouraged to rest and continue using nitrous oxide until she experienced an urge to push. She has been drinking adequate amounts of water and eaten several popsicles but is not aware of having voidied since she went into the tub at 1530. Results Hemoglobin/Hematocrit: Hgb 11.8 g/dL (11.2-15.7) 01/07/21 21:43 Hct 35.2 % (36.0-46.0) L 01/07/21 21:43 Abnormal Lab Findings: Abnormal Labs 01/07/21 21:43 WBC 14.16 H RBC 3.78 L Hct 35.2 L
[2021-01-09] VITALS (8 sets, daily range): BP systolic 83–131; BP diastolic 48–75; PULSE 61–84; RESP 16–18; TEMP 36.7–36.8; O2SAT 95–97; BMI 40.8
--- NOTE | 2021-01-09 00:04 | OBCE_ITS ---
Date of service: 01/09/21 Time of Service: 00:06 Assessment and Plan Assessment and plan (1) Elective induction of labor planned: Status: Acute (2) Elevated glucose level: Status: Acute (3) BMI 31.0-31.9,adult: Status: Acute (4) Abnormality of labor: Status: Acute Assessment and plan: Patient is a 30-year-old female 3 para 0 who had been admitted for labor induction due to postdates. She had cervical ripening, subsequent spontaneous rupture of membranes, labor progression to the point that she was completely dilated however subsequent labor arrest due to arr est of descent.. Patient is no longer able to push with any significant maternal effort and has moderate caput. Risk benefits and alternatives of delivery were explained to the patient and full informed consent was obtained. She understands the risk of infection, bleeding, injury to surrounding organs, risk of anesthesia. She will have preoperative antibiotics and spinal for pain control. Both anesthesia, or crew, and pediatric team were notified History of Present Illness History of Present Illness Chief Complaint: Arrest of descent Narrative: Patient is a 30-year-old female G3, P0 who had care via our midwifery group. She had labor induction due to postdates at 41-2/7 weeks gestation. course was essentially uncomplicated other than an elevated 1 hour glucose tolerance test with normal 3-hour. She initially presented for cervical ripening, subsequently had artificial rupture of membranes. She had Declined Pitocin augmentation. She did have pain control via parenteral narcotics, hydrotherapy in the tub, and nitrous oxide. She did progress to the point that she was completely dilated and with moderate maternal effort was unable to progress with descent. I was called to see and evaluate the patient for potential surgical delivery. At that point mom was complaining of being exhausted and unable to push further. She did have a category 1 strip at that point. Risk benefits and alternatives of section were explained to the patient and her and full informed consent was obtained. Surgical team and anesthesia notified for operative delivery with section. Consults Consult date: 01/09/21 Requesting physician: Puja Reyes Review of Systems Narrative: No significant complaints other than exhaustion, pelvic pain and painful contractions. She denies chest pain or shortness of breath. Constitutional Constitutional: Reports as per HPI Cardiovascular Cardiovascular: Reports system reviewed and no additional complaints, except as documented Respiratory Respiratory: Denies chest congestion Gastrointestinal Gastrointestinal: Reports system reviewed and no additional complaints, except as documented Genitourinary Genitourinary: Reports system reviewed and no additional complaints, except as documented Musculoskeletal Musculoskeletal: Reports system reviewed and no additional complaints, except as documented Neurologic Neurologic: Reports system reviewed and no additional complaints, except as do cumented FOR[facility]LY [facility] Medical History (Updated 01/09/21 @ 00:11 by Sujey Ornelas DO) Abnormality of labor Positive test Seasonal allergic rhinitis Family History Mother Colon cancer Mets to liver Thyroid disease Graves disease - resolved spontaneously Father Hypertension Heart disease Lewy body dementia COPD (chronic obstructive pulmonary disease) Brother Thyroid disease paternal 1/2 brother Social History Smoking/Tobacco Use Status: Never Smoking risk assessment performed?: Yes Drug use: Never Female Reproductive History Menstrual control method: none History History 3 Para 0 Hx # Term Pregnancies 0 Multiple births 0 Hx # Pregnancies 0 Ectopic pregnancies 0 AB induced 0 Hx Number of Living Children 0 AB spontaneous 2 Exam Const General: well developed and acute distress (Due to pain of contractions) mild Nutritional Appearance: overweight Orientation: alert and oriented x3 Eyes General: appearance normal, both eyes and all related structures Neck Neck: normal visual inspection Thyroid: thyroid normal Resp Effort & Inspection: normal respiratory effort Cardio Rate: regular rate Rhythm: regular rhythm GI Inspection: normal to inspection Manual OB Exam: dilated 10, effaced fully and station (It is a +1, vertex 0 station) '+1 Extrem General: normal to inspection, no clubbing, no cyanosis and no edema Results Last Vital Signs Temp 98.1 F 01/08/21 17:02 Pulse 81 01/08/21 22:40 Resp 18 01/08/21 20:01 BP 125/67 01/08/21 22:40 Pulse Ox 98 01/08/21 17:02 Labs Result diagrams: 01/07/21 21:43
--- NOTE | 2021-01-09 00:14 | W.PM.OBNL1 ---
Date of service: 01/09/21 Time of Service: 00:15 Pelvic Exam Dilation: 10 station: -1 Position: OP Vaginal Exam Presentation: Cephalic Contractions Monitor Mode: External Contraction Frequency(min): every 5-6 Contraction Duration(sec): 60-80 Intensity: Moderate/Strong Fetus A Monitor: External (US) Heart Rate Baseline: 130 Presentation: Vertex Variability: Moderate (6-25 BPM) Categories: Category I FHR Rhythm: Regular Accelerations: 15 X 15 Decelerations: None Assessment and Plan Assessment and plan (1) Failure to progress in labor: Status: Acute Assessment and plan: Concepcion agrees to section and permit was signed after review by Dr. Ornelas. Objective Temp Pulse Resp BP Pulse Ox 98.1 F 79 18 113/59 L 98 01/08/21 17:02 01/09/21 00:12 01/08/21 20:01 01/09/21 00:12 01/08/21 17:02 Laboratory Results WBC 14.16 10^3/uL (4.4-10.8) H 01/07/21 21:43 RBC 3.78 10^6/uL (3.93-5.22) L 01/07/21 21:43 Hgb 11.8 g/dL (11.2-15.7) 01/07/21 21:43 Hct 35.2 % (36.0-46.0) L 01/07/21 21:43 MCV 93.1 fL (80-95) 01/07/21 21:43 MCH 31.2 pg (27.0-33.0) 01/07/21 21:43 MCHC 33.5 % (32.0-36.0) 01/07/21 21:43 RDW 13.9 % (11.7-14.6) 01/07/21 21:43 Plt Count 197 10^3/uL (130-400) 01/07/21 21:43 MPV 9.9 fL (8.0-11.0) 01/07/21 21:43 COVID-19 Source NASOPHARYX 01/07/21 21:55 SARS-CoV-2 (PCR) Negative (Negative) 01/07/21 21:55 Patient ABO/Rh A Positive 01/07/21 21:43 Antibody Screen NEGATIVE 01/07/21 21:43 Subjective Patient Reports: New Complaints Interval history since last seen: Concepcion requested a section as she reports that she does not have an urge to push and she does not wish to attempt pushing due to the pain she is experiencing. Her bladder was noted to be distended. She denied an urge to void and declined moving to the bathroom to void so a watkins catheter was placed for 900 cc clear urine. She did attempt pushing a few times after the watkins catheter was placed and there was no descent noted. I consulted with Dr. Ornelas who assessed her and offered an epidural and rest or a and Concepcion wishes to proceed with section at this time. Results Hemoglobin/Hematocrit: Hgb 11.8 g/dL (11.2-15.7) 01/07/21 21:43 Hct 35.2 % (36.0-46.0) L 01/07/21 21:43 Abnormal Lab Findings: Abnormal Labs 01/07/21 21:43 WBC 14.16 H RBC 3.78 L Hct 35.2 L
[2021-01-09] MEDS: ceFAZolin 2 GM/50 ML BAG IVPB (00:18)
[2021-01-09] MEDS: Sodium Citrate 30 ML CUP PO (00:19)
[2021-01-09] MEDS: Lactated Ringers 1,000 ML 200 ML IV (00:19)
[2021-01-09] MEDS: Ondansetron 4 MG/2 ML VIAL IVP (01:00)
[2021-01-09] MEDS: Bupivacaine 0.25% Pres-Free 10 ML VIAL (02:01)
--- NOTE | 2021-01-09 02:33 | PDOC.OPNB_ITS ---
Date of service: 01/09/21 Time of Service: 02:34 Operative Note Operative Note Delivery Method: Unscheduled STAT: No DATE OF PROCEDURE: 01/09/21 PRE-OP DIAGNOSES: Arrest of descent POST-OP DIAGNOSES: same (Persistent occiput posterior, delivery of a viable male infant.) PROCEDURE: Primary low transverse section SURGEON: Sujey Ornelas Manager Internet: Puja Reyes Anesthesia: spinal Estimated blood loss (mL): 700 Pathology: none sent Complications: None Patient was transported to: floor Patient's condition: stable Indications: Labor arrest with arrest of descent Findings: Persistent occiput posterior, delivery of a viable male infant Procedure Description: Patient is a 30-year-old female 3 para 0 who had an induction of labor for postdates. She had cervical ripening, spontaneous rupture of membranes, and progression to completely dilated. She pushed for approximately 2 and half hours with no descent. I was called in consultation for evaluation. Risk benefits and alternatives of delivery were explained to the patient in full informed consent was obtained. She was taken to the operating suite with an IV running. She had received Ancef 2 g for antibiotic prophylaxis. She was not a candidate for Zithromax due to her erythromycin allergy. She was placed in the seated position and spinal anesthesia administered with ease. She was then placed in dorsal supine position with leftward tilt and vaginal preparation was performed. She had previously inserted Bailey catheter which was draining clear yellow urine. She was prepped and draped in the usual sterile fashion. Pfannenstiel skin incision was made in the skin and carried down to the underlying fascia. Fascia was nicked in the midline and extended laterally. The bladder was noted to be high in the peritoneal cavity and with meticulous dissection the peritoneum was identified tented up and entered sharply. The peritoneal incision was extended then extended superiorly and the bladder blade inserted. The vesicouterine peritoneum was identified tented up and entered sharply and an incision made in a low transverse fashion. Fetus was found to be in the direct occiput posterior position and vertex was elevated gently through the uterine incision. There was no evidence of nuchal cord and shoulders followed with relative ease. Three-vessel cord was noted clamped x2 and cut and the was handed off to the waiting merchandise collector. At this point cord blood sample and segment of cord for gases were both obtained and the placenta was manually expressed from the uterus. The uterus was then exteriorized and cleared of all clot and debris. On inspection the incision was made at the cervical vaginal interface at the very high apex of the vagina. This area was closed with 0 Monocryl suture in a 2 layer fashion first running locked second layer imbricating. There was one area that was not hemostatic at the right corner which was oversewn with 0 Monocryl suture and found to be hemostatic. Abdomen was then irrigated with copious amounts of normal saline. Uterus and tubes were inspected and found to be normal and the uterus was returned to the abdomen. The uterine incision was then reinspected and found to be hemostatic. The fascial incision was then closed using 0 Vicryl suture in a running fashion. Fascia and subcutaneous space was infiltrated with quarter percent Marcaine and Exparel combination for long-acting pain relief. The subcutaneous tissue was reapproximated with 3-0 Vicryl suture in a simple interrupted fashion and the skin edge reapproximated with 4-0 Monocryl suture in a subcuticular fashion. Steri-Strips were placed as was a sterile dressing. Uterus was firm and 2 cm below the umbilicus post delivery. She was then taken to the center with a Bailey catheter in place draining clear yellow urine. EBL: 700 mL Complications: None apparent Findings: Delivery of a viable male from the direct occiput posterior position Pathology: None
--- NOTE | 2021-01-09 12:39 | W.ANESPOSTOP ---
Postoperative Evaluation Date, Time and Location Date Performed: 01/09/21 Time Performed: 12:30 Patient Location: Obstetrics Vital Signs Most Recent Imported Vital Signs: Most Recent Vital Signs Temp Pulse Resp BP Pulse Ox 36.8 C 72 16 106/68 96 01/09/21 07:15 01/09/21 07:15 01/09/21 07:15 01/09/21 07:15 01/09/21 07:15 Assessment Mental Status: Awake (Alert & Oriented to Patient Baseline) Airway and Respiratory Function: Patent airway with normal (patient baseline) respiratory exam Cardiovascular Function: Hemodynamically Stable Hydration Status: Adequately Hydrated Nausea & Vomiting: No Nausea or Vomiting Pain: Pt. Denies Any Pain Peripheral Nerve Block: Patient did not receive a nerve block
--- NOTE | 2021-01-09 14:43 | OBPPV_ITS ---
Date of service: 01/09/21 Time of Service: 14:43 Assessment and Plan Assessment and plan (1) Status post primary low transverse section: Status: Acute Assessment and plan: Patient seen postoperative day #0 status post primary low transverse section. She is doing well. She is good pain control. Her mood is normal. We did discuss the fact that I would like to keep her Bailey catheter in for 24 hours due to her significant over distention of her bladder prior to delivery. She is agreeable to this. Her catheter will be removed around midnight. At that point she will be able to ambulate, shower and return to more normal function. Subjective Subjective Patient comments: No complaints, Pain well controlled, Tolerating diet and Flatus present [place] baby status: Nursing well and Strong Bonding Observed Exam Physical Exam Vital signs: Temp Pulse Resp BP Pulse Ox 98.2 F 72 16 106/68 96 01/09/21 07:15 01/09/21 07:15 01/09/21 07:15 01/09/21 07:15 01/09/21 07:15 Constitutional Constitutional: no acute distress Results Hemoglobin/Hematocrit: Hgb 11.8 g/dL (11.2-15.7) 01/07/21 21:43 Hct 35.2 % (36.0-46.0) L 01/07/21 21:43 Abnormal Lab Findings: Abnormal Labs 01/07/21 21:43 WBC 14.16 H RBC 3.78 L Hct 35.2 L
[2021-01-09] MEDS: oxyCODONE 5 mg/Acetaminophen 325 mg TAB PO ×2 (17:23→21:29)
[2021-01-10 00:05] VITALS: BP 103/67; PULSE 84; RESP 18; TEMP 36.8
[2021-01-10] MEDS: oxyCODONE 5 mg/Acetaminophen 325 mg TAB PO ×6 (02:31→23:39)
[2021-01-10 05:00] VITALS: BP 99/64; PULSE 84; RESP 18; TEMP 36.8
[2021-01-10 07:30] VITALS: BP 102/68; PULSE 76; RESP 20; TEMP 36.6; O2SAT 97
[2021-01-10 08:24] LABS: Abs Immature Grans 0.34 10^3/uL (0.0-0.06); Absolute Monocyte Count 1.27 10^3/uL (0.1-0.8); Basophils % 0.2; Eosinophils % 0.6; HCT 29.4 % (36.0-46.0); HGB 9.8 g/dL (11.2-15.7); Lymphocytes % 14.7; MCH 31.3 pg (27.0-33.0); MCHC 33.3 % (32.0-36.0); MCV 93.9 fL (80-95); MPV 10.5 fL (8.0-11.0); Monocytes % 7.3; Neutrophils % 75.2; Nucleated RBC 0 %; Platelet Count 180 10^3/uL (130-400); RBC 3.13 10^6/uL (3.93-5.22); RDW 14.4 % (11.7-14.6); RDW-SD 49.1 fL; WBC 17.36 10^3/uL (4.4-10.8)
[2021-01-10 08:32] LABS: Absolute Basophil Count 0.03 10^3/uL (0.0-0.2); Absolute Lymphocyte Count 2.55 10^3/uL (1.2-3.4); Absolute Neutrophil Count 13.05 10^3/uL (1.2-6.7)
--- NOTE | 2021-01-10 17:27 | W.PM.OBPNV1 ---
Date of service: 01/10/21 Time of Service: 17:27 Subjective Subjective Interval history: Patient is seen postoperative day #1 ambulating, tolerating regular diet and oral pain medication. She is bonding well and breast-feeding without difficulty. Her mood is appropriate and overall she is having a normal post operative course. Exam Physical Exam Vital signs: Temp Pulse Resp BP Pulse Ox 97.9 F 76 20 102/68 97 01/10/21 07:30 01/10/21 07:30 01/10/21 07:30 01/10/21 07:30 01/10/21 07:30 Constitutional Constitutional: no acute distress HEENT Exam HEENT Exam: Normal Respiratory Exam Respiratory Exam: Normal Cardiovascular Exam Cardiovascular Exam: Normal Abdominal Exam Abdomen: Tender Fundal Exam Fundus: Below Umbilicus and Firm Extremities Exam Extremity Exam: Normal; negative Calf Tenderness and Edema Results Hemoglobin/Hematocrit: Hgb 9.8 g/dL (11.2-15.7) L 01/10/21 07:20 Hct 29.4 % (36.0-46.0) L 01/10/21 07:20 Abnormal Lab Findings: Abnormal Labs 01/07/21 01/10/21 21:43 07:20 WBC 14.16 H 17.36 H RBC 3.78 L 3.13 L Hgb 9.8 L Hct 35.2 L 29.4 L Absolute Neutrophils 13.05 H Absolute Monocytes 1.27 H
[2021-01-10 19:36] VITALS: BP 114/76; PULSE 77; RESP 19; TEMP 36.6; O2SAT 98
[2021-01-11] MEDS: oxyCODONE 5 mg/Acetaminophen 325 mg TAB PO (05:00)
[2021-01-11 07:15] VITALS: BP 121/77; PULSE 79; RESP 14; TEMP 36.9
--- NOTE | 2021-01-11 09:24 | OBPPV_ITS ---
Date of service: 01/11/21 Time of Service: 09:24 Assessment and Plan Assessment and plan (1) Status post primary low transverse section: Status: Acute Assessment and plan: Postoperative day #2 status was primary low transverse section for arrest of descent. Doing well. Normal postoperative course. Discharge home today. Follow-up in the office in 2 weeks in 6 weeks. Patient is contemplating neck steps as far as contraception. Subjective Subjective Interval history: Patient seen and examined today postoperative day #2 status post primary low transverse section. She is doing well. Her pain is under good control. She is breast-feeding without difficulty. She and her hus band do desire discharge home today. Patient comments: No complaints and Pain well controlled [place] baby status: Doing well, Nursing well and Strong Bonding Observed [place] feeding status: Exclusively breast feeding Exam Physical Exam Vital signs: Temp Pulse Resp BP Pulse Ox 98.4 F 79 14 121/77 98 01/11/21 07:15 01/11/21 07:15 01/11/21 07:15 01/11/21 07:15 01/10/21 19:36 Constitutional Constitutional: no acute distress HEENT Exam HEENT Exam: Normal Neck Exam Neck Exam: Normal Respiratory Exam Respiratory Exam: Normal Detail Cardiovascular Exam Cardiovascular: Present RRR, S1 and S2; Absent murmur Abdominal Exam Comments: Soft, nontender, incision well approximated, clean dry and intact Fundal Exam Fundus: Below Umbilicus and Firm Extremities Exam Extremity Exam: Normal; negative Calf Tenderness and Edema Skin Exam Skin Exam: Normal Neurological Exam Neurological Exam: Normal DetailedPsychiatric Exam Psych Exam: Normal Affect, Normal Thougth Process, Cooperative, Good Insight and Good Judgement Results Hemoglobin/Hematocrit: Hgb 9.8 g/dL (11.2-15.7) L 01/10/21 07:20 Hct 29.4 % (36.0-46.0) L 01/10/21 07:20 Abnormal Lab Findings: Abnormal Labs 01/07/21 01/10/21 21:43 07:20 WBC 14.16 H 17.36 H RBC 3.78 L 3.13 L Hgb 9.8 L Hct 35.2 L 29.4 L Absolute Neutrophils 13.05 H Absolute Monocytes 1.27 H
--- NOTE | 2021-01-11 09:44 | W.PM.DS.N ---
Date of service: 01/11/21 Time of Service: 09:45 DS: Diagnosis Discharge Diagnosis (1) Status post primary low transverse section: Status: Acute Discharge Plan Disposition Patient Disposition: HOME Condition: Good Discharge Details Reason For Visit: INDUCTION OF LABOR Admit Date/Time: 01/07/21 20:33 Admit Provider: Puja Reyes Attending Provider: Puja Reyes Primary Care Provider: Gogo Staton [facility] Course Hospital Course: Patient is a 30-year-old 3 para 0 who had been under care with our midwifery service. She had labor induction due to postdates. She had a failed induction with progression of labor to complete and dilated with arrest of descent after approximately 2 and half hours of pushing. She underwent primary low transverse section for arrest of descent and persistent occiput posterior position. She delivered a viable male infant at that time. She was doing well postoperatively. She was discharged home postoperative day #2 ambulating, tolerating regular diet and oral pain medication with stable vital signs. She is breast-feeding without difficulty. Her follow-up will be in the office in 2 weeks and 6 weeks. Home Meds and New Rx's Prescriptions: New oxycodone-acetaminophen [Percocet] 5-325 mg tablet 1 tab PO TID PRNQty: 14 RF: 0 Continued prenat.vits,elio,vji-codn-fvjce Tablet 1 tab PO DAILY RF: 0 epinephrine [EpiPen] 0.3 MG/0.3 ML auto-injector 0.3 mg IM PRN PRNRF: 0 Discharge Instructions Additional Instructions: Follow-up with Dr. Ornelas in women's wellness in 2 weeks and 6 weeks Stand Alone Forms: BC Discharge Instruc Activity:: Pelvic rest, no heavy lif Equipment/Supplies:: No Equipment Needed Diet:: As Tolerated Discharge Orders Discharge Orders: Discharge Order (Routine); Ordered 01/11/21 Ordered By: Sujey Ornelas DS: Summary Time Spent with Patient providing and/or coordinating discharge services: Less than 30 minutes Status at Discharge Functional status at discharge: independent ambulation Overall status at discharge: patient is back to baseline Mental Status: mental status grossly normal Speech and Movement: speech and movement normal Mood: congruent mood Affect: normal affect Exam Narrative Exam Narrative: Please see exam from progress note dated 01/11/2021 Psych Mental Status: mental status grossly normal Speech and Movement: speech and movement normal Mood: congruent mood Affect: normal affect DS: Data Vitals/I&O Vitals and I&O: Vital Signs Temperature 98.4 F 01/11/21 07:15 Pulse 79 01/11/21 07:15 Pulse Rhythm Regular 01/11/21 07:15 Respiratory Rate 14 01/11/21 07:15 Respiratory Depth Normal 01/10/21 07:40 Blood Pressure 121/77 01/11/21 07:15 Blood Pressure Mean 91 01/11/21 07:15 Pulse Oximetry 98 01/10/21 19:36 Pain Level 4 01/11/21 05:00 Intake & Output 01/10/21 01/10/21 01/11/21 11:59 23:59 11:59 Intake Total 1100 / 1900 800 / 1900 Output Total 4600 / 6000 1400 / 6000 Balance -3500 / -4100 -600 / -4100 Intake: IV 800 / 800 Oral 1100 / 1100 Output: Urine 4600 / 6000 1400 / 6000 Other: Urine Color Yellow Yellow Comment Pt voided 500mL successfully for first time since straight catheter last night, scanned for 145mL. [facility] Medical History (Updated 01/09/21 @ 00:20 by Puja Reyes CNM) Abnormality of labor Positive test Seasonal allergic rhinitis Surgical History (Updated 01/09/21 @ 14:43 by Sujey Ornelas DO) Status post primary low transverse section Family History Mother Colon cancer Mets to liver Thyroid disease Graves disease - resolved spontaneously Father Hypertension Heart disease Lewy body dementia COPD (chronic obstructive pulmonary disease) Brother Thyroid disease paternal 1/2 brother Social History Smoking/Tobacco Use Status: Never Smoking risk assessment performed?: Yes Drug use: Never Female Reproductive History Menstrual control method: none History History 3 Para 0 Hx # Term Pregnancies 0 Multiple births 0 Hx # Pregnancies 0 Ectopic pregnancies 0 AB induced 0 Hx Number of Living Children 0 AB spontaneous 2
== END 2021-01-11 10:45 | disposition home or self-care (01) | DRG 788 ==
PROVIDERS: Obstetrics & Gynecology; Admitting Provider Advanced Practice Midwife; PCP Nurse Practitioner Family; Visit Provider Advanced Practice Midwife
PROC: 10D00Z1 Extraction of Products of Conception, Low, Open Approach (ICD-10-PCS; CPT 59514; principal; 2021-01-09 01:00)
DX: O48.0 Post-term pregnancy (principal); Z37.0 Single live birth; Z3A.41 41 weeks gestation of pregnancy; O62.1 Secondary uterine inertia; O64.0XX0 Obstructed labor due to incomplete rotation of fetal head, not applicable or unspecified
CPT/HCPCS: 59514; 36415; 85027; 86850; 86900; 86901; 87635; 85025; J0690; J1100; J2370; J2405; J3490

== ENCOUNTER 2022-01-25 01:43 | Outpatient (CLI) | payer BC, SELFPAY ==
--- NOTE | 2022-01-25 09:09 | PAPFT_PTH ---
PATIENT: Concepcion Barksdale LOC: [facility] U#:[id number] AGE/SX: 31/F ROOM: RE01/25/[address]: Puja Reyes : 1990 BED: DIS: 01/25/2022 SPEC #: [id number] RECD: 01/25/22 10:32 STATUS: GALINDO REQ #: [id number] MICHI: 01/25/22 09:[address]: Puja Reyes DEPT: [facility] Cytology RECD BY: Monica Lindsey ENTERED: 01/25/22 10:33 SP TYPE: PAPFT OTHR DR: Gogo Staton Tissues: 1 - CX/ENDOCX FOR PAP SMEARS Procedures: PAP THIN PREP/UVM Screening HPV DNA PROBE Comments: [id number]
[2022-01-25 10:22] LABS: Kit/Specimen SENT
[2022-01-25 10:27] LABS: Abs Immature Grans 0.04 10^3/uL (0.0-0.06); Absolute Basophil Count 0.02 10^3/uL (0.0-0.2); Absolute Eosinophil Count 0.18 10^3/uL (0.0-0.7); Absolute Monocyte Count 0.53 10^3/uL (0.1-0.8); Absolute Neutrophil Count 5.24 10^3/uL (1.2-6.7); Basophils % 0.3; Eosinophils % 2.4; HCT 36.7 % (36.0-46.0); HGB 12.7 g/dL (11.2-15.7); Immature Grans % 0.5; MCHC 34.6 % (32.0-36.0); MCV 90 fL (80-95); MPV 9.7 fL (8.0-11.0); Neutrophils % 68.8; Platelet Count 243 10^3/uL (130-400); RDW 12.5 % (11.7-14.6); RDW-SD 40.9 fL; WBC 7.61 10^3/uL (4.4-10.8)
[2022-01-25 10:59] LABS: Glucose,1 Hr (Glucola) 96 mg/dL (80-140)
[2022-01-25 11:24] LABS: TSH (W/Ref FT4) 1.38 uIU/mL (0.36-3.74)
[2022-01-27 14:07] LABS: HIV-1/2 Ag & Ab Screen Negative (Negative)
[2022-01-28 09:08] LABS: Hepatitis B Surface Ag Negative (Negative)
[2022-01-28 09:25] LABS: Hepatitis C Ab w Rflx HCV PCR Negative (Negative)
[2022-01-28 11:29] LABS: Varicella IgG Antibody Positive (See Note)
[2022-01-28 11:41] LABS: Rubella IgG Ab (UVM) Positive (See Note)
[2022-01-28 19:13] LABS: Syphilis IgG w/Reflex Nonreactive (Nonreactive)
== END 2022-01-25 01:44 | disposition home or self-care (01) ==
LOC: LBO 01:43
PROVIDERS: PCP Nurse Practitioner Family; Visit Provider Advanced Practice Midwife
DX: Z34.91 Encounter for supervision of normal pregnancy, unspecified, first trimester (principal); Z3A.10 10 weeks gestation of pregnancy; Z12.4 Encounter for screening for malignant neoplasm of cervix; Z11.51 Encounter for screening for human papillomavirus (HPV)
CPT/HCPCS: 36415; 82950; 86787; 86803; 86850; 86900; 86901; 87340; 87389; 88142; 84443; 85025; 86762; 86780; 87624

== ENCOUNTER 2022-01-25 10:59 | Outpatient (REF) | payer BC, SELFPAY ==
[2022-01-25 13:55] LABS: *AMPHETAMINES SCREEN URINE Negative (Negative); *BARBITURATES SCREEN URINE Negative (Negative); *BENZODIAZEPINES SCREEN URINE Negative (Negative); Cannabinoids THC Negative (Negative); Cocaine Screen,Urine Negative (Negative); METHADONE URINE SCREEN Negative (Negative); OPIATES URINE SCREEN Negative (Negative); Tricyclic Antidepressants Negative (Negative)
[2022-01-26 18:44] LABS: Chlamydia Result Negative (Negative); GC Result Negative (Negative)
[2022-01-30 15:36] LABS: Buprenorphine Negative ng/mL (Cutoff: 5.0); Norbuprenorphine Negative ng/mL (Cutoff: 2.5)
== END 2022-01-25 11:00 | disposition home or self-care (01) ==
LOC: LBN 10:59
PROVIDERS: PCP Nurse Practitioner Family; Visit Provider Advanced Practice Midwife
DX: Z34.91 Encounter for supervision of normal pregnancy, unspecified, first trimester (principal); Z3A.10 10 weeks gestation of pregnancy
CPT/HCPCS: 80307; 87491; 87591; 87086; 87480; 87510; 87660

== ENCOUNTER 2022-05-22 04:58 | Outpatient (CLI) | payer BC, SELFPAY ==
[2022-05-22 16:11] LABS: HCT 34.3 % (36.0-46.0); HGB 11.6 g/dL (11.2-15.7); MCHC 33.8 % (32.0-36.0); MCV 95 fL (80-95); MPV 9.6 fL (8.0-11.0); Platelet Count 221 10^3/uL (130-400); RBC 3.62 10^6/uL (3.93-5.22); RDW 13.5 % (11.7-14.6); RDW-SD 46.5 fL; WBC 11.55 10^3/uL (4.4-10.8)
[2022-05-22 16:23] LABS: Glucose,1 Hr (Glucola) 144 mg/dL (80-140)
== END 2022-05-22 04:59 | disposition home or self-care (01) ==
LOC: LBO 04:58
PROVIDERS: PCP Nurse Practitioner Family; Visit Provider Advanced Practice Midwife
DX: Z34.92 Encounter for supervision of normal pregnancy, unspecified, second trimester (principal); Z3A.27 27 weeks gestation of pregnancy
CPT/HCPCS: 36415; 82950; 85027

== ENCOUNTER 2022-05-29 03:19 | Outpatient (CLI) | payer BC, SELFPAY ==
[2022-05-29 09:30] LABS: Glucose 1 Hour 130 mg/dL
[2022-05-29 11:20] LABS: Glucose 3 Hour 80 mg/dL
== END 2022-05-29 03:20 | disposition home or self-care (01) ==
LOC: LBO 03:19
PROVIDERS: PCP Nurse Practitioner Family; Visit Provider Advanced Practice Midwife
DX: Z34.92 Encounter for supervision of normal pregnancy, unspecified, second trimester (principal)
CPT/HCPCS: 36415; 82951

== ENCOUNTER 2022-07-18 01:35 | Outpatient (CLI) | payer BC, SELFPAY ==
--- NOTE | 2022-07-18 08:00 | DI.US_ITS ---
Exam(s) US OB KILEY WEIGHT EXAM: US OB KILEY WEIGHT CLINICAL HISTORY: growth,measuring big,O26.849. TECHNIQUE: Transabdominal obstetrical ultrasound performed. COMPARISON: US US OB 2-3 TRIMESTER from 03/22/2022 FINDINGS: Number of fetuses: 1 position: CEPHALIC Placental location: There is a grade 1 right-sided placenta. No evidence of previa. BIOMETRIC DATA: BPD: 9.86cm, 40weeks 3days HC: 35.35cm, 41weeks 2days AC: 33.44cm, 37weeks 2days FL: 6.87cm, 35weeks 2days EFW: 3,261.64g, 7lb 4.41oz, 92.8% Composite Age: 38weeks 4days BURT: 07/28/2022 Heart Rate: 115bpm Amniotic fluid index: 22.36cm. The largest pocket is 8.5 cm. IMPRESSION: 1. Single live intrauterine gestation as above. 2. Estimated weight is 3262gms. This is the 93rd percentile. 3. Amniotic fluid index is 22.4 cm. There is however, a pocket measuring 8.5 cm. DATA REPOSITORY:
== END 2022-07-18 01:55 ==
LOC: DI 01:44
PROVIDERS: PCP Nurse Practitioner Family; Visit Provider Obstetrics & Gynecology
DX: O26.843 Uterine size-date discrepancy, third trimester (principal); Z3A.38 38 weeks gestation of pregnancy
CPT/HCPCS: 76816

== ENCOUNTER 2022-07-19 14:20 | Outpatient (REF) | payer BC, SELFPAY | END 2022-07-19 14:21 | disposition home or self-care (01) | LOC: LBN 14:20 | PROVIDERS: PCP Nurse Practitioner Family; Visit Provider Obstetrics & Gynecology Gynecology | DX: Z34.93 Encounter for supervision of normal pregnancy, unspecified, third trimester (principal); Z36.85 Encounter for antenatal screening for Streptococcus B; Z3A.35 35 weeks gestation of pregnancy | CPT/HCPCS: 87081 ==

== ENCOUNTER 2022-08-14 05:55 | Inpatient (IN) | payer BC, SELFPAY ==
[2022-08-14] VITALS (24 sets, daily range): BP systolic 104–130; BP diastolic 56–79; PULSE 59–111; RESP 18; TEMP 36.3–37.2; O2SAT 96–100; BMI 41.0
[2022-08-14 06:42] LABS: Source Nasal/Nares
[2022-08-14] MEDS: Lactated Ringers 1,000 ML 200 ML IV ×2 (06:50→08:23)
[2022-08-14 06:53] LABS: HCT 35.3 % (36.0-46.0); MCH 30.4 pg (27.0-33.0); MCV 89 fL (80-95); MPV 9.9 fL (8.0-11.0); Platelet Count 208 10^3/uL (130-400); RBC 3.95 10^6/uL (3.93-5.22); RDW 14.6 % (11.7-14.6); RDW-SD 45.8 fL
--- NOTE | 2022-08-14 07:07 | ANES.PREOP_ITS ---
General Info Date of Service Date Performed: 08/14/22 Height: 5 ft 1 in Weight: 98.43 kg Body Mass Index (BMI): 41.0 Surgical Procedure: Operation Date: 08/14/22 07:40 Proposed Procedure Side Surgeon p Repeat Section, Possible Hysterectomy Sujey Ornelas DO Meds Allergies and Home Medications Allergies Allergy/AdvReac Type Severity Reaction Status Date / Time erythromycin base Allergy Severe SHORTNESS Verified 08/08/22 12:59 [Erythromycin Base] OF BREATH, SHARP SHOOTING PAINS NSAIDS (Non-Steroidal Allergy Severe Anaphylaxsi Verified 08/08/22 12:59 Anti-Inflamma s thimerosal Allergy Intermediate SHOOTING Verified 08/08/22 12:59 PAINS, SHORTNESS OF BREATH, SWELLING Home Medication Medication Instructions Recorded epinephrine 0.3 mg/0.3 mL 0.3 mg IM PRN PRN 08/24/12 injection, auto-injector (EpiPen) prenat.vits,elio,att-aamu-vnaeb 1 tab PO DAILY 08/10/19 cholecalciferol (vitamin D3) 50 50 mcg PO DAILY 02/23/21 mcg (2,000 unit) capsule Current Visit Medications: Current Medications Generic Name Dose Route Start Last Admin Trade Name Freq PRN Reason Stop Dose Admin Citric Acid/Sodium Citrate 30 ml 08/14/22 07:00 Sodium Citrate 30 Ml Cup PO PREOP ORESTES Cefazolin Sodium/Dextrose 2 gm in 50 mls @ 100 mls/hr 08/14/22 06:15 Ancef Duplex IVPB PREOP ORESTES Ringer's Solution 1,000 mls @ 200 mls/hr 08/14/22 06:15 IV INFUSION ORESTES Sodium Chloride 500 mls @ 0 mls/hr 08/14/22 06:14 Saline 500ml Bag IV PRN PRN As Directed IV Miscellaneous Supplies 1 each 08/14/22 06:15 Iv Access IV DIRECTED ORESTES Sodium Chloride 0 ml 08/14/22 06:14 Normal Saline Flush 10 Ml Syr IVP PRN PRN PFSH Active Problems Active Problems: Problem Status Onset Code BMI 31.0-31.9,adult Z68.31 Z34.90 Previous section Z98.891 Uterine size date discrepancy O26.849 Medical History Medical History (Updated 07/02/22 @ 09:19 by Rhona Wright MD) Seasonal allergic rhinitis Spontaneous 01/2019 and 08/2019 Surgical History Surgical History (Updated 03/18/22 @ 09:45 by Puja Hernandez CNM) H/O knee surgery congenital plica Status post arthroscopic knee surgery Tobacco Smoking/Tobacco Use Status: Never Alcohol Alcohol Intake: never Substance Use Substance use: Never Substance use type: does not use Prental History History 4 Para 1 Hx # Term Pregnancies 1 Multiple births 0 Hx # Pregnancies 0 Ectopic pregnancies 0 AB induced 0 Hx Number of Living Children 1 AB spontaneous 2 Past Pregnancies Del. Date GA/Weeks # Preg Succ Route Wgt Sex Labor Lgth Anesth esia Location Prov Complic 01/09/21 41 No Yes 3665.593 g Male 24 regional [facility] - Dr Ornelas Delivery Date: 01/09/21 Last Updated by: Griselda Cruz IOL postdates, miso, balloon, pushed x2.5 hrs, arrest of descent, C/S Vital Signs and Lab Results Vital Signs Most Recent Vital Signs in EMR: Most Recent Vital Signs Temp Pulse BP 36.7 C 88 130/74 08/14/22 06:37 08/14/22 06:37 08/14/22 06:37 Lab Results 08/14/22 06:30 Blood Type / Crossmatch: Patient ABO/Rh A Positive 08/14/22 Complete Blood Count: White Blood Count 11.20 10^3/uL (4.4-10.8) H 08/14/22 06:30 Red Blood Count 3.95 10^6/uL (3.93-5.22) 08/14/22 06:30 Hemoglobin 12.0 g/dL (11.2-15.7) 08/14/22 06:30 Hematocrit 35.3 % (36.0-46.0) L 08/14/22 06:30 Platelet Count 208 10^3/uL (130-400) 08/14/22 06:30 Complete Metabolic Panel: No Data to Display Liver Function Panel: No Data to Display Coagulation Panel: No Data to Display Cardiac Panel: No Data to Display Arterial Blood Gas: No Data to Display Venous Blood Gas: No Data to Display Pancreas Panel: No Data to Display Thyroid Panel: No Data to Display Infectious Disease: Coronavirus (COVID-19)(PCR) Negative (Negative) 03/29/23 06:34 Coronavirus 2019 Source Nasal/Nares 08/14/22 06:34 Blood Cultures: No Data to Display Toxicology Panel: No Data to Display Panel: 2 No Data to Display Anesthesia Assessment and Plan Anesthesia History Personal History: No History of Anesthesia Complications Family History: No Family History of Anesthesia Complications Exercise Tolerance Exercise Tolerance: Metabolic Equivalents>4 Cardiac & Pulmonary Exam Cardiac Exam: Normal S1/S2 Heart Sounds Pulmonary Exam: Clear Bilateral Breath Sounds Implantable Cardiac Device Does patient have a Pacemaker or an ICD?: No Airway Exam Known Difficult Airway: No Mallampati Class: 2 Mouth Opening: Normal (> 3cm) Thyromental Distance: Greater than 3 cm Neck Range of Motion: Full ROM Neck Circumference: Normal Teeth Condition: Normal Dentition ASA Classification ASA Score: ASA 3 Emergency Case?: No NPO Status NPO Status: NPO Clears >2 hours, Solids >8 hours Status Status: Confirmed Anesthesia Plan Resuscitation Status: Full Code Anesthesia Technique: Spinal Anesthesia Airway Planned: Natural Airway Pain Management: Intrathecal Analgesia Monitors Used: Standard Monitors
[2022-08-14] MEDS: Sodium Citrate 30 ML CUP PO (07:10)
[2022-08-14] MEDS: ceFAZolin 2 GM/50 ML BAG IVPB (07:10)
[2022-08-14 07:13] LABS: COVID-19 PCR Negative (Negative)
[2022-08-14] MEDS: Bupivacaine 0.25% Pres-Free 30 ML VIAL (07:55)
[2022-08-14] MEDS: Oxytocin/Normal Saline 30 UNIT/500 ML BAG 95 UNITS IV (08:30)
--- NOTE | 2022-08-14 08:58 | W.PM.OBCSECT ---
Date of service: 08/14/22 Time of Service: 08:58 Operative Note Operative Note Delivery Method: Scheduled and Repeat Previous LT Incision: Yes DATE OF PROCEDURE: 08/14/22 PRE-OP DIAGNOSES: Term , prior section, declines trial of labor. Same with polyhydramnios and macrosomia PROCEDURE: Repeat low-transverse section SURGEON: Sujey Ornelas Rod Machine Operator: Rhona Wright Anesthesia: regional and spinal Estimated blood loss (mL): 350 Pathology: none sent Complications: None Patient was transported to: floor Patient's condition: stable Indications: Prior low-transverse section. Suspected macrosomia with polyhydramnios. Declines trial of labor. Findings: Normal-appearing tubes, ovaries, uterus. Delivery of a viable male . Significant amniotic fluid volume, 2 L at the time of delivery. Procedure Description: Patient is a 31-year-old female with a history of prior section. She had a section at term after a prolonged labor and a second stage attempt that was approximately 5 to 6 hours long. course was uncomplicated at this point. She called declined trial of labor. Risk-benefit and alternatives of section were explained to the patient in full informed consent was obtained. She was taken the operating suite with an IV running where she is placed in the seated position. Spinal anesthesia administered, tested and found to be adequate. She was then placed in dorsal supine position with leftward tilt and prepped and draped in the usual sterile fashion. She received Ancef 2 g preoperatively for surgical site infection prophylaxis. She is not a candidate for Zithromax due to her anaphylactic reaction in the past. She received pneumatic compression stockings for DVT prophylaxis. She had a vaginal preparation and Bailey catheter inserted for continuous bladder drainage. Pfannenstiel skin incision was made through her previous scar and carried down to the underlying fascia which was nicked in the midline and fascial incision extended laterally. The rectus muscles were identified and split in the midline peritoneum identified tented up and entered sharply and the peritoneal incision extended superiorly and inferiorly. There were filmy adhesions of the lower uterine segment to the bladder which were meticulously dissected in creation of a bladder flap. The bladder blade was inserted and a low transverse uterine incision was made with a scalpel and extended bluntly laterally. The vertex was delivered through the incision there was no evidence of nuchal cord. Shoulders followed with ease. Three-vessel cord was noted clamped x2 and cut and the infant was handed off to the waiting auto suspension and steering mechanic. At this point a segment of cord for cord blood gases depending on Apgars and numbness. Cord blood sample was obtained. The placenta was delivered spontaneously through the uterine incision. The uterus was then exteriorized and cleared of all clot and debris. Uterine incision was closed using 0 Monocryl suture in a 2 layer fashion first being running locked second being imbricating. Uterine incision was inspected and noted to be hemostatic. Ovaries and tubes were normal. The uterus was then returned to the abdomen. Abdomen irrigated with copious months of normal saline and again the uterine inspected incision inspected and found to be hemostatic. At this point the fascial incision was closed using 0 Vicryl suture in a running fashion. Subcutaneous tissue irrigated with copious amounts of normal saline. Subcu space reapproximated with 3-0 Vicryl and the skin edge reapproximated with 4-0 undyed Monocryl. Steri-Strips and sterile dressing were placed. Uterus was firm and approximately 2 cm below the uterus post delivery. Patient was taken to the center for recovery in stable condition with a Bailey catheter draining clear yellow urine. Complications: None apparent Fluids: Crystalloid per anesthesia EBL: 350 mL Findings: Delivery of a viable male infant. Copious fluid consistent with polyhydramnios. Normal-appearing tubes, ovaries, uterus. Pathology: None sent.
[2022-08-14] MEDS: Acetaminophen 325 MG TAB 650 MG PO ×2 (14:39→18:46)
--- NOTE | 2022-08-14 16:18 | W.ANESPOSTOP ---
Postoperative Evaluation Date, Time and Location Date Performed: 08/14/22 Time Performed: 10:05 Patient Location: Obstetrics Vital Signs Most Recent Imported Vital Signs: Most Recent Vital Signs Temp Pulse Resp BP Pulse Ox 37.2 C 64 18 104/66 99 08/14/22 14:52 08/14/22 14:52 08/14/22 14:52 08/14/22 14:52 08/14/22 14:52 Pain Score Most Recent Pain Score: Most Recent Pain Score Pain Level [Abdomen] 3 08/14/22 14:52 Pain Level 0 08/14/22 06:37 Assessment Mental Status: Awake (Alert & Oriented to Patient Baseline) Airway and Respiratory Function: Patent airway with normal (patient baseline) respiratory exam Cardiovascular Function: Hemodynamically Stable Hydration Status: Adequately Hydrated Nausea & Vomiting: No Nausea or Vomiting Pain: Pt. Denies Any Pain Peripheral Nerve Block: Regional nerve block not resolved at time of post operative discharge
[2022-08-15 00:49] VITALS: BP 122/78; PULSE 87; RESP 18; TEMP 36.7
[2022-08-15] MEDS: Acetaminophen 325 MG TAB 650 MG PO ×5 (00:49→21:24)
[2022-08-15 07:33] VITALS: BP 116/77; PULSE 72; RESP 18; TEMP 36.6; O2SAT 99
[2022-08-15 07:39] LABS: Abs Immature Grans 0.18 10^3/uL (0.0-0.06); Absolute Basophil Count 0.04 10^3/uL (0.0-0.2); Absolute Eosinophil Count 0.14 10^3/uL (0.0-0.7); Absolute Lymphocyte Count 1.97 10^3/uL (1.2-3.4); Absolute Monocyte Count 0.75 10^3/uL (0.1-0.8); Absolute Neutrophil Count 8.66 10^3/uL (1.2-6.7); Basophils % 0.3; Eosinophils % 1.2; HGB 11.3 g/dL (11.2-15.7); Immature Grans % 1.5; Lymphocytes % 16.8; MCH 30.5 pg (27.0-33.0); MCHC 33.2 % (32.0-36.0); MCV 92 fL (80-95); MPV 10.3 fL (8.0-11.0); Monocytes % 6.4; Neutrophils % 73.8; Platelet Count 181 10^3/uL (130-400); RBC 3.71 10^6/uL (3.93-5.22); RDW 14.8 % (11.7-14.6); RDW-SD 48.7 fL; WBC 11.74 10^3/uL (4.4-10.8)
--- NOTE | 2022-08-15 09:39 | W.PM.OBPNV1 ---
Date of service: 08/15/22 Time of Service: 09:39 Assessment and Plan Assessment and plan (1) Status post repeat low transverse section: Status: Acute Assessment and plan: Postoperative day #1 status post repeat low transverse section. Doing well. Stable hemoglobin. Stable vital signs. Ambulating, tolerating regular diet with oral pain medication. Breast-feeding without difficulty. Anticipate discharge home tomorrow (2) Previous section: Status: Chronic Exam Physical Exam Vital signs: Temp Pulse Resp BP Pulse Ox 97.9 F 72 18 116/77 99 08/15/22 07:33 08/15/22 07:33 08/15/22 07:33 08/15/22 07:33 08/15/22 07:33 Vital Signs Reviewed: Yes Constitutional Constitutional: no acute distress HEENT Exam HEENT Exam: Normal Neck Exam Neck Exam: Normal Respiratory Exam Respiratory Exam: Normal Cardiovascular Exam Cardiovascular Exam: Normal Abdominal Exam Comments: Soft, nondistended, incision dressed. Fundal Exam Fundus: Below Umbilicus and Firm Extremities Exam Extremity Exam: Normal; negative Calf Tenderness Skin Exam Skin Exam: Normal Neurological Exam Neurological Exam: Normal Psychiatric Exam Psychiatric Exam: Normal Results Hemoglobin/Hematocrit: Hgb 11.3 g/dL (11.2-15.7) 08/15/22 07:05 Hct 34.0 % (36.0-46.0) L 08/15/22 07:05 Abnormal Lab Findings: Abnormal Labs 08/14/22 08/15/22 06:30 07:05 WBC 11.20 H 11.74 H RBC 3.71 L Hct 35.3 L 34.0 L RDW 14.8 H Absolute Neutrophils 8.66 H
[2022-08-15 11:52] VITALS: BP 117/79; PULSE 82; RESP 20; TEMP 36.7; O2SAT 97
[2022-08-15 15:17] VITALS: BP 129/85; PULSE 76; RESP 18; TEMP 36.9; O2SAT 97
[2022-08-15 19:45] VITALS: BP 128/85; PULSE 75; RESP 17; TEMP 36.9; O2SAT 97
[2022-08-16] MEDS: Acetaminophen 325 MG TAB 650 MG PO ×2 (03:31→07:53)
[2022-08-16 03:45] VITALS: BP 125/80; PULSE 76; RESP 17; TEMP 36.7; O2SAT 98
[2022-08-16 07:47] VITALS: BP 115/78; PULSE 64; RESP 18; TEMP 36.7; O2SAT 98
--- NOTE | 2022-08-16 08:15 | OBPPV_ITS ---
Date of service: 08/16/22 Time of Service: 08:16 Assessment and Plan Assessment and plan (1) Status post repeat low transverse section: Status: Acute Assessment and plan: Postoperative day #2 status post repeat low transverse section for delivery of viable male infant at term. Doing well. Discharge home today. Subjective Subjective Interval history: Patient seen and examined this morning. Doing well. Desires discharge home. Breast-feeding without difficulty. Pain is well controlled. All of her questions were answered. [place] feeding status: Exclusively breast feeding Exam Physical Exam Vital signs: Temp Pulse Resp BP Pulse Ox 98.1 F 64 18 115/78 98 08/16/22 07:47 08/16/22 07:47 08/16/22 07:47 08/16/22 07:47 08/16/22 07:47 Constitutional Constitutional: no acute distress HEENT Exam HEENT Exam: Normal Neck Exam Neck Exam: Normal Respiratory Exam Respiratory Exam: Normal Cardiovascular Exam Cardiovascular Exam: Normal Abdominal Exam Abdomen: Tender Comments: Nondistended. Incision clean dry intact. Fundal Exam Fundus: Below Umbilicus and Firm Extremities Exam Extremity Exam: Normal; negative Calf Tenderness Neurological Exam Neurological Exam: Normal Psychiatric Exam Psychiatric Exam: Normal Results Hemoglobin/Hematocrit: Hgb 11.3 g/dL (11.2-15.7) 08/15/22 07:05 Hct 34.0 % (36.0-46.0) L 08/15/22 07:05 Abnormal Lab Findings: Abnormal Labs 08/14/22 08/15/22 06:30 07:05 WBC 11.20 H 11.74 H RBC 3.71 L Hct 35.3 L 34.0 L RDW 14.8 H Absolute Neutrophils 8.66 H
--- NOTE | 2022-08-16 08:19 | W.PM.OBDISCH ---
Date of service: 08/16/22 Time of Service: 08:19 DS: Diagnosis Discharge Diagnosis (1) Status post repeat low transverse section: Status: Acute Asessment and Plan: Postoperative day #2 status post repeat low transverse section. Doing well. Discharge home. Follow-up in 6 and 2 weeks. Prescription for Percocet, Tylenol, Colace to the pharmacy. Discharge Plan Disposition Patient Disposition: Home Condition: Good Discharge Details Reason For Visit: Admit Date/Time: 08/14/22 05:55 Admit Provider: Sujey Ornelas Attending Provider: Sujey Ornelas Primary Care Provider: Gogo Staton Hospital Course Hospital Course: Patient was admitted on 08/14/2022 for repeat low-transverse section. She delivered a viable male infant named Tyler. She had an uncomplicated postoperative course and was discharged home postoperative day #2 ambulating, tolerating regular diet and oral pain medication with stable vital signs. Home Meds and New Rx's Prescriptions: New oxycodone-acetaminophen [Percocet] 5-325 mg tablet 1 tab PO Q8H PRNQty: 7 0RF No Action prenat.vits,elio,cuq-qmbi-mvqwa Tablet 1 tab PO DAILY cholecalciferol (vitamin D3) 50 mcg (2,000 unit) capsule 50 mcg PO DAILY epinephrine [EpiPen] 0.3 MG/0.3 ML auto-injector 0.3 mg IM PRN PRN Patient Comments: Pt has never had to use it. Discharge Instructions Stand Alone Forms: BC Instructions, BC Discharge Instruc Activity:: Pelvic rest and no heavy Equipment/Supplies:: No Equipment Needed Diet:: As Tolerated Discharge Orders Discharge Orders: Discharge Order (Routine); Ordered 08/16/22 Ordered By: Sujey Ornelas OB:DS Summary Summary Episiotomy Description: None Laceration Description: None Laceration Extension: N/A Contraception Discussed Contraception Discussed: Yes, Infant Gender-Baby A: Male weight: 8 lb 9.745 oz Status at Discharge Functional status at discharge: independent ambulation Overall status at discharge: patient is progressing back to baseline Mental Status: mental status grossly normal Speech and Movement: speech and movement normal Mood: congruent mood Affect: normal affect Exam Physical Exam Vital signs: Temp Pulse Resp BP Pulse Ox 98.1 F 64 18 115/78 98 08/16/22 07:47 08/16/22 07:47 08/16/22 07:47 08/16/22 07:47 08/16/22 07:47 Constitutional Comments: See physical exam from progress note dated 08/16/2022. PFSH All Active Problems Status post repeat low transverse section (Acute) BMI 31.0-31.9,adult (Acute) (Acute) Previous section (Chronic) Uterine size date discrepancy (Acute) Medical History Seasonal allergic rhinitis Spontaneous 01/2019 and 08/2019 Surgical History H/O knee surgery congenital plica Status post arthroscopic knee surgery Family History Mother , colon CA at age 61 Colon cancer Mets to liver, age 61 Thyroid disease Graves disease - resolved spontaneously Father , age 73 Hypertension Heart disease Lewy body dementia COPD (chronic obstructive pulmonary disease) Brother Thyroid disease paternal 1/2 brother Social History Smoking/Tobacco Use Status: Never Smoking risk assessment performed?: Yes Alcohol Intake: never Drug use: Never Substance use type: does not use Do you feel safe at home: Yes Do you feel safe in your relationship?: Yes Female Reproductive History Menstrual control method: none History History 4 Para 1 Hx # Term Pregnancies 1 Multiple births 0 Hx # Pregnancies 0 Ectopic pregnancies 0 AB induced 0 Hx Number of Living Children 1 AB spontaneous 2 Past Pregnancies Del. Date GA/Weeks # Preg Succ Route Wgt Sex Labor Lgth Anesthesia Location Prov Complic 01/09/21 41 No Yes 8 lb 1.3 oz Male 24 regional [facility] - Dr Ornelas Delivery Date: 01/09/21 Last Updated by: Griselda Cruz IOL postdates, miso, balloon, pushed x2.5 hrs, arrest of descent, C/S DS: Data Vitals/I&O Vitals and I&O: Vital Signs Temperature 98.1 F 08/16/22 07:47 Temperature Source Oral 08/16/22 07:47 Pulse 64 08/16/22 07:47 Pulse Rhythm Regular 08/16/22 07:47 Respiratory Rate 18 08/16/22 07:47 Respiratory Depth Normal 08/15/22 19:45 Blood Pressure 115/78 08/16/22 07:47 Blood Pressure Mean 90 08/16/22 07:47 Pulse Oximetry 98 08/16/22 07:47 Oxygen Delivery Method Room Air 08/14/22 06:37 Oxygen Flow Rate 0 08/14/22 06:37 Pain Level 3 08/16/22 07:47 Intake & Output 08/15/22 08/15/22 08/16/22 11:59 23:59 11:59 Other: Urine Color Yellow Yellow
== END 2022-08-16 09:50 | disposition home or self-care (01) | DRG 788 ==
PROVIDERS: Admitting Provider Obstetrics & Gynecology; PCP Nurse Practitioner Family; Visit Provider Obstetrics & Gynecology
PROC: 10D00Z1 Extraction of Products of Conception, Low, Open Approach (ICD-10-PCS; CPT 59514; principal; 2022-08-14 07:30)
DX: O34.211 Maternal care for low transverse scar from previous cesarean delivery (principal); Z37.0 Single live birth; O40.3XX0 Polyhydramnios, third trimester, not applicable or unspecified; O36.63X0 Maternal care for excessive fetal growth, third trimester, not applicable or unspecified; Z3A.39 39 weeks gestation of pregnancy; N85.8 Other specified noninflammatory disorders of uterus
CPT/HCPCS: 59514; 36415; 85027; 86850; 86900; 86901; 87635; 85025; J0131; J0690; J2370; J2405; J3010

== ENCOUNTER → 2023-09-17 14:37 | Outpatient (CLI) | payer BC, SELFPAY ==
--- NOTE | 2023-09-17 14:55 | DI.RAD_ITS ---
Exam(s) XR WRIST LT COMPLETE EXAM: XR WRIST LT COMPLETE CLINICAL HISTORY: evaluate pathology. TECHNIQUE: 2D digital imaging was performed. COMPARISON: No exams were available for comparison FINDINGS: 3 views No evidence of acute fracture or dislocation nor significant ulnar variance. Bone density normal. S capholunate distance normal. No scaphoid fracture seen. On the medial aspect of the wrist there 2 adjacent calcific densities. The larger measures 2.5 by 1. 2 mm. These do not have the appearance of acute fracture fragments. IMPRESSION: Two calcific densities on the medial aspect the wrist do not have the appearance of acute fracture fr agments. No other significant osseous findings in the wrist. DATA REPOSITORY: RADIATION DOSE DELIVERED:
== END ==
PROVIDERS: PCP Nurse Practitioner Family; Visit Provider Nurse Practitioner Family
DX: M71.43 Calcium deposit in bursa, wrist (principal)
CPT/HCPCS: 73110

== ENCOUNTER 2023-11-27 13:32 | Emergency (ER) | payer BC, SELFPAY ==
[2023-11-27] VITALS (29 sets, daily range): BP systolic 115–156; BP diastolic 57–82; PULSE 65–87; RESP 14; TEMP 37; O2SAT 84–100
--- NOTE | 2023-11-27 13:46 | W.ED.GENAD ---
Discharge Plan Discharge Details Chief Complaint: Abd Prob Primary Care Provider: Unknown,Unknown ED Provider: Ugo Burrows Home Meds and New Rx's Prescriptions: No Action epinephrine [EpiPen] 0.3 MG/0.3 ML auto-injector 0.3 mg IM PRN PRN Patient Comments: Pt has never had to use it. HPI General Date/Time Provider Initiated Documentation: 11/27/23 13:46. HPI Narrative: 32 year-old female presents to ED today by POV/ambulating with a chief complaint of R sided abdominal pain with onset late Friday night- day 2-3 of pain. Quality described as dull aching, no sharp pain- questioned that it kind of started around the umbilicus and moved more R sided, no radiation to fever, endorses increased belching and nausea, denies vomiting, denies black/bloody stools, dysuria, hematuria. Severity is described as mild- 2/10. Palliating factors include nothing specific. Provoking factors include nothing specific. Events leading up to the incident/Associated Symptoms: Patient denies past surgical history. Patient not anticoagulated. Related Data Home Medications ?Medication ?Instructions ?Recorded ?Confirmed epinephrine 0.3 mg/0.3 mL 0.3 mg IM PRN PRN 08/24/12 11/27/23 injection, auto-injector (EpiPen) Allergies Allergy/AdvReac Type Severity Reaction Status Date / Time erythromycin base Allergy Severe SHORTNESS Verified 11/27/23 13:39 (Erythromycin Base) OF BREATH, SHARP SHOOTING PAINS NSAIDS (Non-Steroidal Allergy Severe Anaphylaxsi Verified 11/27/23 13:39 Anti-Inflamma s thimerosal Allergy Intermediate SHOOTING Verified 11/27/23 13:39 PAINS, SHORTNESS OF BREATH, SWELLING General Stated Complaint: Abd Prob SADE: 3 Review of Systems All systems reviewed & are unremarkable except as noted in HPI and below Exam Narrative Exam Narrative: GENERAL APPEARANCE: Well-nourished, non-toxic, awake and alert, atraumatic, no acute distress. SKIN: Warm, pink, dry, intact, without rashes/lesions/ulcerations. HEAD: Normocephalic, atraumatic, normal hair distribution for gender/age. EYES: Pupils PERRLA, EOMs intact without nystagmus, normal conjunctiva, no exudates on lids/lashes. ENT: Nares patent, no circumoral cyanosis, no facial swelling NECK: Supple, trachea midline, painless cervical ROM. LUNGS/CHEST: Lungs CTA bilaterally- no rhonchi/rales/wheezes diffusely, non-labored respirations, normal A/P diameter, symmetrical expansion, no chest wall deformity HEART (CV/PV): Regular rate and rhythm without murmur, no peripheral edema, no JVD. ABDOMEN: Soft, non-distended, no guarding, mild TTP at McBurney's point and RUQ tenderness without Christianson's sign, no rebound tenderness, no Rovsing's, no CVA tenderness to percussion bilaterally. MSK: Normal ROM, no swelling/deformity to bilateral UEs or LEs, moving all extremities without weakness, no cyanosis, spine midline without tenderness, normal curvature. NEURO: Mental Status AAOx4 - alert to person, place, time, events No facial droop, no forehead involvement. Motor: No focal weakness - strength 5/5 in bilateral UEs and LEs, proximal and distal, symmetric. Sensory: sensation intact to light touch globally. Gait normal: patient ambulated without ataxia into ED room. PSYCH: euthymic, cooperative, pleasant, appropriate speech Course Vital Signs Vital signs: Vital Signs Temperature 37.0 C 11/27/23 13:35 Pulse 79 11/27/23 13:35 Respiratory Rate 14 11/27/23 13:35 Blood Pressure 132/79 11/27/23 13:35 Pulse Oximetry 100 11/27/23 13:35 Temperature 37.0 C 11/27/23 13:35 Temperature Source Skin 11/27/23 13:35 Pulse 79 11/27/23 13:35 Respiratory Rate 14 11/27/23 13:35 Blood Pressure 132/79 11/27/23 13:35 Blood Pressure Position Sitting 11/27/23 13:35 Pulse Oximetry 100 11/27/23 13:35 Oxygen Delivery Method Room Air 11/27/23 13:35 Oxygen Flow Rate 0 11/27/23 13:35 Pain Level 1 11/27/23 13:35 Medical Decision Making This dictation utilizes [id number] dictation software and may contain unedited grammatical errors. 32 year-old female presents to ED today by POV/ambulating with a chief complaint of R sided abdominal pain with onset late Friday night- day 2-3 of pain. Quality described as dull aching, no sharp pain- questioned that it kind of started around the umbilicus and moved more R sided, no radiation to fever, endorses increased belching and nausea, denies vomiting, denies black/bloody stools, dysuria, hematuria. Severity is described as mild- 2/10. Palliating factors include nothing specific. Provoking factors include nothing specific. Events leading up to the incident/Associated Symptoms: Patient denies past surgical history. Patients' medical history: [ ]. Family and social history: [ ]. Pertinent exam findings / vital signs include ABDOMEN: Soft, non-distended, no guarding, mild TTP at McBurney's point and RUQ tenderness without Christianson's sign, no rebound tenderness, no Rovsing's, no CVA tenderness to percussion bilaterally. Nontoxic vitals, afebrile. Differential / pathologies of concern include biliary colic, gastritis, less likely appendicitis, gastroenteritis, pancreatitis, ovarian pathology. Diagnostic studies of: -CBC, CMP, Lactate, Procalcitonin, Lipase, UA, Upreg, Blood Cx's, imaging decision based on labs. Interventions of: -1L IVF NS, 1g IV APAP, 4mg IV Zofran. ED Course/Assessment/Plan: 32-year-old female presents with 3 days of right-sided abdominal pain, she is not focally tender at McBurney's point, day 3 has no elevation of white blood cells, CMP is benign lactate is negative, procalcitonin is negative lipase is within normal limits and CRP is negative. Awaiting UA and U for imaging decision with a trial of IV famotidine for relief of suspected gastritis. The patient could be reasonably discharged if she is comfortable with watchful waiting and avoiding any radiation exposure or she could opt for CT, I suspect that ultrasound would not be useful in a young somewhat thin female for appendicitis rule out and she does not have any suspicions for biliary cholangitis or choledocholithiasis based on my exam and laboratory workup so I think CT may be more useful versus watchful waiting at home with possible outpatient endoscopy. Patient signed out to Yelena Garcia NP at shift change with pending UA/Upreg and possible imaging. Findings not consistent with sepsis, appendicitis. Disposition of Abdominal Pain of Unknown Cause. Patient verbalized understanding of the plan and return to ED criteria and engaged in shared decision making. Medical Records Medical records reviewed: Yes I reviewed the patient's medical records. Lab Data Lab results reviewed: Yes I reviewed the patient's lab results. Labs: 11/27/23 14:58 Blood Blood Culture - Pending 11/27/23 13:49 Blood Blood Culture - Pending Laboratory Tests Range/Units 11/27/23 14:15 WBC (4.4-10.8) 10^3/uL 8.24 RBC (3.93-5.22) 10^6/uL 4.64 Hgb (11.2-15.7) g/dL 13.9 Hct (36.0-46.0) % 41.3 MCV (80-95) fL 89 MCH (27.0-33.0) pg 30.0 MCHC (32.0-36.0) % 33.7 RDW (11.7-14.6) % 12.3 Plt Count (130-400) 10^3/uL 271 MPV (8.0-11.0) fL 9.8 Immature Gran % % 0.2 Neutrophils % % 66.1 Lymphocytes % % 24.5 Monocytes % % 6.6 Eosinophils % % 2.2 Basophils % % 0.4 Nucleated RBC % (0.0-0.3) % 0.0 Absolute Neutrophils (1.2-6.7) 10^3/uL 5.45 Absolute Lymphocytes (1.2-3.4) 10^3/uL 2.02 Absolute Monocytes (0.1-0.8) 10^3/uL 0.54 Absolute Eosinophils (0.0-0.7) 10^3/uL 0.18 Absolute Basophils (0.0-0.2) 10^3/uL 0.03 VBG Lactate (0.6-1.4) mmol/L 0.9 Sodium (136-145) mmol/L 139 Potassium (3.5-5.1) mmol/L 3.9 Chloride (98-107) mmol/L 104 Carbon Dioxide (21.0-32.0) mmol/L 26.6 Anion Gap (3-11) mmol/L 8.4 BUN (7-18) mg/dL 12 Creatinine (0.55-1.02) mg/dL 0.8 Est GFR (CKD-EPI 2020) (mL/min/1.73m2) 99.09 Glucose (74-106) mg/dL 94 Calcium (8.5-10.1) mg/dL 9.5 Total Bilirubin (0.2-1.0) mg/dL 0.60 AST (15-37) U/L 12 L ALT (14-59) U/L 24 Alkaline Phosphatase (46-116) U/L 78 C-Reactive Protein (<or=0.5) mg/dL < 0.50 Total Protein (6.4-8.2) g/dL 8.5 H Albumin (3.4-5.0) g/dL 4.7 Lipase (16-77) U/L 34 Procalcitonin ng/mL < 0.1 Quality:SDOH Health Related Social Needs: No Data to Display PFSH All Active Problems Wound dehiscence, (Acute) Superficial dehiscence treated with silver nitrate and Aquacel Status post repeat low transverse section (Acute) BMI 31.0-31.9,adult (Acute) Medical History Spontaneous 01/2019 and 08/2019 Seasonal allergic rhinitis Surgical History Previous section Status post arthroscopic knee surgery H/O knee surgery congenital plica Family History Mother , colon CA at age 61 Colon cancer Mets to liver, age 61 Thyroid disease Graves disease - resolved spontaneously Father , age 73 Hypertension Heart disease Lewy body dementia COPD (chronic obstructive pulmonary disease) Brother Thyroid disease paternal 1/2 brother Social History Smoking/Tobacco Use Status: Never Smoking risk assessment performed?: Yes Alcohol Intake: never Drug use: Never Substance use type: does not use Do you feel safe at home: Yes Do you feel safe in your relationship?: Yes Female Reproductive History Menstrual control method: none History History 4 Para 2 Hx # Term Pregnancies 2 Multiple births 0 Hx # Pregnancies 0 Ectopic pregnancies 0 AB induced 0 Hx Number of Living Children 2 AB spontaneous 2 Past Pregnancies Del. Date GA/Weeks # Preg Succ Route Wgt Sex Labor Lgth Anesthesia Location Prov Complic 01/09/21 41 No Yes 3665.593 g Male 24 regional [facility] - Dr Ornelas 08/14/22 39 No Yes 3905.005 g Male KJ Delivery Date: 01/09/21 Last Updated by: Griselda Cruz IOL postdates, miso, balloon, pushed x2.5 hrs, arrest of descent, C/S
[2023-11-27] MEDS: Normal Saline 1,000 ML 1000 ML IV (14:13)
[2023-11-27] MEDS: Ondansetron 4 MG/2 ML VIAL IVP (14:13)
[2023-11-27] MEDS: ACETAMINOPHEN 1,000 MG/100 ML BTL 400 MG IVPB (14:13)
[2023-11-27 14:23] LABS: Abs Immature Grans 0.02 10^3/uL (0.0-0.06); Absolute Basophil Count 0.03 10^3/uL (0.0-0.2); Absolute Eosinophil Count 0.18 10^3/uL (0.0-0.7); Absolute Lymphocyte Count 2.02 10^3/uL (1.2-3.4); Absolute Monocyte Count 0.54 10^3/uL (0.1-0.8); Absolute Neutrophil Count 5.45 10^3/uL (1.2-6.7); Basophils % 0.4 %; Eosinophils % 2.2 %; HCT 41.3 % (36.0-46.0); HGB 13.9 g/dL (11.2-15.7); Immature Grans % 0.2 %; Lactate 0.9 mmol/L (0.6-1.4); Lymphocytes % 24.5 %; MCHC 33.7 % (32.0-36.0); MCV 89 fL (80-95); MPV 9.8 fL (8.0-11.0); Monocytes % 6.6 %; Neutrophils % 66.1 %; Platelet Count 271 10^3/uL (130-400); RBC 4.64 10^6/uL (3.93-5.22); RDW 12.3 % (11.7-14.6); RDW-SD 40.1 fL; WBC 8.24 10^3/uL (4.4-10.8)
[2023-11-27 14:46] LABS: ALT 24 U/L (14-59); AST 12 U/L (15-37); Albumin 4.7 g/dL (3.4-5.0); Alkaline Phosphatase 78 U/L (46-116); Anion Gap 8.4 mmol/L (3-11); BUN 12 mg/dL (7-18); CO2 26.6 mmol/L (21.0-32.0); CREATININE 0.8 mg/dL (0.55-1.02); Calcium 9.5 mg/dL (8.5-10.1); Chloride 104 mmol/L (98-107); Estimated GFR 99.09 (mL/min/1.73m2); Glucose 94 mg/dL (74-106); Lipase 34 U/L (16-77); Potassium 3.9 mmol/L (3.5-5.1); Sodium 139 mmol/L (136-145); Total Protein 8.5 g/dL (6.4-8.2)
[2023-11-27 14:47] LABS: C-Reactive Protein < 0.50 mg/dL (<or=0.5)
[2023-11-27 14:56] LABS: Procalcitonin < 0.1 ng/mL
[2023-11-27] MEDS: Famotidine 20 MG/2 ML VIAL IVP (15:03)
--- NOTE | 2023-11-27 15:18 | ED.PROG_ITS ---
Date of service: 11/27/23 Time of Service: 15:18 Medical Decision Making Care assumed from provider (LUPE Logan) Please see their initial HPI, PE, and documentation. Discussed patient details and case and pending workup and disposition. Patient is hemodynamically stable, and alert and oriented. Time of signout awaiting pending urinalysis and possible imaging for right lower quadrant pain. Patient is a 32-year-old female who presents with right lower quadrant flank pain with a virtually normal workup at this point. No leukocytosis, lipase within normal limits negative CRP. Patient has received a liter of normal saline and famotidine. Please see previous documentation. CT abd Pelvis ordered w contrast. On patient reevaluation she reports that she feels much better than when she first arrived, she does still complain of some right upper quadrant abdominal pain. Differential diagnosis includes not limited to gallstones, cholecystitis, kidney stone, she does have trace blood in her urine however she is currently on her menses. Gastritis gastroenteritis, peptic ulcer disease. No acute abnormality noted on CT imaging, please see official report below. Will discharge patient with gastritis and strict return instructions and follow- up care. Will instruct on [id number] antacid and clear liquids advance as tolerated diet for the next 2 to 3 days. This text was generated using [employer] dictation system, please disregard any oddities of phrase or misspellings. Imaging Data Radiologic Study: Imaging: CT Scan Radiologist's impression: FINDINGS: ABDOMEN: Lung Bases: Normal where visualized. Liver: Normal density. No measurable mass. Portal, Superior Mesenteric, and Splenic Veins: Unremarkable. Gallbladder and Biliary Tract: No radiodense calculus or dilation. Pancreas: Normal density, no abnormal calcifications or inflammatory process. Spleen: Normal. Adrenals: No masses seen. Kidneys: Normal size, contour and axis. No radiodense stones or obstructive uropathy. No masses seen. There is a simple left renal cysts. No follow-up is recommended. There are tiny hypodensities seen in both kidneys which are too small for further characterization. These likely reflect small cysts. No follow-up is recommended. Abdominal Aorta: Abdominal portion non-dilated. Mild atherosclerotic calcification. Bowel: No obstruction or bowel wall thickening. Appendix is unremarkable. The appendix measures 4.5 mm in diameter. No Yessenia appendiceal inflammation is seen. Peritoneal Cavity: No ascites, collection or mesenteric inflammatory response. No free air. Lymph Nodes: Within normal limits. Bones: Within normal limits for the patient's age. Soft Tissues: Unremarkable. PELVIS: Bladder: Symmetric distention, no gross wall thickening. Reproductive Organs: There is a contraceptive device seen in the vagina. There are mildly prominent parametrial vessels which may reflect pelvic congestion. Lymph Nodes: Within normal limits. Bones: Within normal limits for the patient's age. IMPRESSION: 1. No acute abdominal or pelvic process. 2. Normal appendix, no evidence of cholelithiasis or biliary ductal dilatation and no evidence of nephrolithiasis or obstructive uropathy. Lab Data Lab results reviewed: Yes I reviewed the patient's lab results. Labs: 11/27/23 14:58 Blood Blood Culture - Pending 11/27/23 13:49 Blood Blood Culture - Pending Laboratory Tests Range/Units 11/27/23 14:15 WBC (4.4-10.8) 10^3/uL 8.24 RBC (3.93-5.22) 10^6/uL 4.64 Hgb (11.2-15.7) g/dL 13.9 Hct (36.0-46.0) % 41.3 MCV (80-95) fL 89 MCH (27.0-33.0) pg 30.0 MCHC (32.0-36.0) % 33.7 RDW (11.7-14.6) % 12.3 Plt Count (130-400) 10^3/uL 271 MPV (8.0-11.0) fL 9.8 Immature Gran % % 0.2 Neutrophils % % 66.1 Lymphocytes % % 24.5 Monocytes % % 6.6 Eosinophils % % 2.2 Basophils % % 0.4 Nucleated RBC % (0.0-0.3) % 0.0 Absolute Neutrophils (1.2-6.7) 10^3/uL 5.45 Absolute Lymphocytes (1.2-3.4) 10^3/uL 2.02 Absolute Monocytes (0.1-0.8) 10^3/uL 0.54 Absolute Eosinophils (0.0-0.7) 10^3/uL 0.18 Absolute Basophils (0.0-0.2) 10^3/uL 0.03 VBG Lactate (0.6-1.4) mmol/L 0.9 Sodium (136-145) mmol/L 139 Potassium (3.5-5.1) mmol/L 3.9 Chloride (98-107) mmol/L 104 Carbon Dioxide (21.0-32.0) mmol/L 26.6 Anion Gap (3-11) mmol/L 8.4 BUN (7-18) mg/dL 12 Creatinine (0.55-1.02) mg/dL 0.8 Est GFR (CKD-EPI 2020) (mL/min/1.73m2) 99.09 Glucose (74-106) mg/dL 94 Calcium (8.5-10.1) mg/dL 9.5 Total Bilirubin (0.2-1.0) mg/dL 0.60 AST (15-37) U/L 12 L ALT (14-59) U/L 24 Alkaline Phosphatase (46-116) U/L 78 C-Reactive Protein (<or=0.5) mg/dL < 0.50 Total Protein (6.4-8.2) g/dL 8.5 H Albumin (3.4-5.0) g/dL 4.7 Lipase (16-77) U/L 34 Procalcitonin ng/mL < 0.1 Quality:SDOH Health Related Social Needs: No Data to Display Sign Out Sign Out Data: Sign Out Comment: Pending UA, Upreg, possible imaging- Trying famotidine IV for relief of possible gastritis. Last updated by Ugo Burrows PA at 11/27/23 15:07 Discharge Plan Disposition Patient Disposition: Home Condition: Stable Discharge Details Clinical Impression: Abdominal pain, Gastritis Primary Care Provider: Unknown,Unknown ED Provider: Yelena Garcia Home Meds and New Rx's Prescriptions: No Action epinephrine [EpiPen] 0.3 MG/0.3 ML auto-injector 0.3 mg IM PRN PRN Patient Comments: Pt has never had to use it. Discharge Instructions Instructions: Abdominal Pain, Adult ED Additional Instructions: Please consider taking an [id number] antacid such as Pepcid daily or omeprazole. CT at this time shows no evidence of gallstones or infection or inflammation around her gallbladder. No evidence of kidney stones at this time. Please practice liquid diet for the next couple of days advance as tolerated with a bland diet. Stay away from anything fried fatty spicy or dairy. Follow up with primary care provider in 3-5 days. Return to ED sooner if any worsening pain, nausea, vomiting, diarrhea blood in your stool or vomit, or concerns. Referrals: Primary Care Provider [Outside] - 1 week Discharge Data Discharge Date/Time-TO BE ENTERED AT DEPARTURE: 11/27/23 18:10
--- NOTE | 2023-11-27 15:30 | DI.CT_ITS ---
Exam(s) CT ABDOMEN PELVIS W EXAM: CT ABDOMEN PELVIS W CLINICAL HISTORY: RLQ/RUQ abd pain, nausea TECHNIQUE: Imaging Protocol: Axial computed tomography images with coronal and sagittal reformatted images were created and reviewed. CONTRAST MATERIAL: Intravenous: Omnipaque 350 Contrast volume:100 mL Oral: No COMPARISON: No exams were available for comparison FINDINGS: ABDOMEN: Lung Bases: Normal where visualized. Liver: Normal density. No measurable mass. Portal, Superior Mesenteric, and Splenic Veins: Unremarkable. Gallbladder and Biliary Tract: No radiodense calculus or dilation. Pancreas: Normal density, no abnormal calcifications or inflammatory process. Spleen: Normal. Adrenals: No masses seen. Kidneys: Normal size, contour and axis. No radiodense stones or obstructive uropathy. No masses seen. There is a simple left renal cysts. No follow-up is recommended. There are tiny hypodensities seen in both kidneys which are too small for further characterization. These likely reflect small cysts. No follow-up is recommended. Abdominal Aorta: Abdominal portion non-dilated. Mild atherosclerotic calcification. Bowel: No obstruction or bowel wall thickening. Appendix is unremarkable. The appendix measures 4.5 m m in diameter. No Yessenia appendiceal inflammation is seen. Peritoneal Cavity: No ascites, collection or mesenteric inflammatory response. No free air. Lymph Nodes: Within normal limits. Bones: Within normal limits for the patient's age. Soft Tissues: Unremarkable. PELVIS: Bladder: Symmetric distention, no gross wall thickening. Reproductive Organs: There is a contraceptive device seen in the vagina. There are mildly prominent parametrial vessels which may reflect pelvic congestion. Lymph Nodes: Within normal limits. Bones: Within normal limits for the patient's age. IMPRESSION: 1. No acute abdominal or pelvic process. 2. Normal appendix, no evidence of cholelithiasis or biliary ductal dilatation and no evidence of nep hrolithiasis or obstructive uropathy. RADIATION DOSE DELIVERED: 949.38mGy.cm Total DLP DATA REPOSITORY: All CT scans at this facility are submitted to the National Radiology Data Registry (NRDR) Dose Index Registry (DIR) with the [employer] [place] [employer] (A[employer]). RADIATION OPTIMIZATION: All CT scans at this facility use at least one of these dose optimization te chniques: automated exposure control; mA and/or kV adjustment per patient size (includes targeted exa ms where dose is matched to clinical indication); or iterative reconstruction.
[2023-11-27 16:04] LABS: Bilirubin Negative (Negative); Blood Trace-intact (Negative); Clarity Clear (Clear); Glucose Negative (Negative); Ketones Negative (Negative); Leukocyte Esterase Negative (Negative); Nitrite Negative (Negative); Specific Gravity 1.015 (1.005-1.025); Urobilinogen 0.2 mg/dL (Up to 0.2); pH 5.5 (5-8)
[2023-11-27 16:10] LABS: Epithelial Cells Few HPF (Negative); RBC 0-2 HPF (0-2); WBC 0-2 HPF (0-5)
[2023-11-27 16:11] LABS: Bacteria Negative HPF (Negative); C & S Indicated? No; Casts Negative LPF (Negative); Crystals Negative HPF (Negative); Mucus Negative (Negative)
[2023-11-27] MEDS: Normal Saline - Diluent 50 ML VIAL IJ (16:53)
[2023-11-27] MEDS: Omnipaque 350 MG/ML 100 ML BTL IJ (16:55)
[2023-11-27] MEDS: Ondansetron O.D.T. 4 MG TABEF, 3 TABS/BTL PO (18:03)
== END 2023-11-27 18:10 | disposition home or self-care (01) ==
PROVIDERS: Physician Assistant; Emergency Provider Registered Nurse Emergency
DX: K29.70 Gastritis, unspecified, without bleeding
CPT/HCPCS: 00123; 36415; 80053; 81025; 83690; 84145; 87040; 96365; 96375; 99285; 74177; 81003; 81015; 83605; 85025; 86140; 99284; J0131; J2405; J3490

== ENCOUNTER 2024-02-22 11:41 | Emergency (ER) | payer BC, SELFPAY ==
[2024-02-22 11:50] VITALS: BP 143/81; PULSE 79; RESP 16; TEMP 36.4; O2SAT 99
--- NOTE | 2024-02-22 12:45 | DI.US_ITS ---
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 COMPARISON: US US OB KILEY WEIGHT from 07/18/2022 FINDINGS: UTERUS: Nongravid and anteverted Measures 11 cm length x 4 cm AP x 5.5 cm wide. There are no uterine fibroids. Endometrial thickness measures 9 mm.. This is age-appropriate. There is no fluid in the endometrial canal. CERVIX: There is a fluid in the endocervical canal. RIGHT OVARY: Measures 3 x 1.2 x 2.3 cm Contains a small involuting cyst measuring 1 cm. No significant masses. LEFT OVARY: Measures 3.2 x 1.5 x 1.7 cm Contains small sub cm follicular cysts. No solid lesions. CUL-DE-SAC: No free fluid evident. IMPRESSION: 1. Normal appearing uterus, however, there is some clear fluid in the endocervical canal evident. 2. No significant abnormal ovarian findings. 3. No free fluid evident in the adnexal regions and cul-de-sac. First read by [facility]. DATA REPOSITORY:
--- NOTE | 2024-02-22 13:21 | ED.GENADUL_ITS ---
Discharge Plan Disposition Patient Disposition: Home Condition: Good Discharge Details Clinical Impression: Right lower quadrant pain Primary Care Provider: Unknown,Unknown ED Provider: Trinity Bryant Home Meds and New Rx's Prescriptions: Continued epinephrine [EpiPen] 0.3 MG/0.3 ML auto-injector 0.3 mg IM PRN PRN Patient Comments: Pt has never had to use it. Discharge Instructions Instructions: Pelvic Pain ED Additional Instructions: Your ultrasound reassuring here today. Urinalysis is pending and I will call you with any acute abnormalities. As your pain has been associated with times of ovulation, this may be associated with cyst versus scar tissue as previously discussed by [facility]. I encourage that you follow-up with them to discuss further care of your pain. Please call tomorrow to schedule follow-up appointment. Encourage hydration. May continue with Tylenol and ibuprofen as needed for discomfort. Heat can also be of benefit. If you develop nausea/vomiting, increased pain, fever/chills, radiation of pain or pain changes in location/quality please seek care urgently once again. Referrals: Sameera Lindsay MD [ [facility] STAFF PHYSICIAN] - Discharge Data Discharge Date/Time-TO BE ENTERED AT DEPARTURE: 02/22/24 13:50 HPI General Date/Time Provider Initiated Documentation: 02/22/24 12:14 . Limitations to Documentation: no limitations . Information obtained by: patient . History of Present Illness 33 year old F presents to the emergency department with the chief complaint of This isRLQ pain, described as moderate, Quality is described as aching, and is localized to the abdomen. Patient reports no radiation. Patient started experiencing this month(s) and it has been intermittent. No relieving factors improve symptom(s), Other factors that worsen symptoms (worse around time of ovulation) . Patient notes no other symptoms.. Patient did receive the following treatments prior to arrival, none Related Data Home Medications ?Medication ?Instructions ?Recorded ?Confirmed epinephrine 0.3 mg/0.3 mL 0.3 mg IM PRN PRN 08/24/12 02/22/24 injection, auto-injector (EpiPen) Allergies Allergy/AdvReac Type Severity Reaction Status Date / Time erythromycin base Allergy Severe SHORTNESS Verified 02/22/24 11:59 (Erythromycin Base) OF BREATH, SHARP SHOOTING PAINS NSAIDS (Non-Steroidal Allergy Severe Anaphylaxsi Verified 02/22/24 11:59 Anti-Inflamma s thimerosal Allergy Intermediate SHOOTING Verified 02/22/24 11:59 PAINS, SHORTNESS OF BREATH, SWELLING General Stated Complaint: Abd Prob SADE: 3 Review of Systems Constitutional Constitutional: Reports as per HPI, Denies chills and Denies fever(s) Cardiovascular Cardiovascular: Reports as per HPI, Denies chest pain and Denies dyspnea Respiratory Respiratory: Reports as per HPI, Denies cough and Denies dyspnea Gastrointestinal Gastrointestinal: Reports as per HPI Musculoskeletal Musculoskeletal: Reports as per HPI and Denies back pain Integumentary/Breasts Skin/Breast: Reports as per HPI and Denies rash Neurologic Neurologic: Reports as per HPI Exam Const General: cooperative, healthy appearing, comfortable, no acute distress and well developed Nutritional Appearance: average body habitus and well nourished Orientation: alert and awake HENMT Head: normal to inspection Mouth: moist mucous membranes Resp Effort & Inspection: normal respiratory effort, able to speak in complete sentences and no respiratory distress Cardio Rate: regular rate Rhythm: regular rhythm GI Palpation: soft, not firm, no guarding, not rigid and nontender Back/Spine/Pelvis Back: no CVA tenderness Skin General skin exam: no rashes or lesions noted Trauma: no lacerations or abrasions Neuro General: patient alert and patient awake Cognition: normal cognition Speech: speech normal Gait: normal gait Course Vital Signs Vital signs: Vital Signs Temperature 36.4 C 02/22/24 11:50 Pulse 79 02/22/24 11:50 Respiratory Rate 16 02/22/24 11:50 Blood Pressure 143/81 H 02/22/24 11:50 Pulse Oximetry 99 02/22/24 11:50 Temperature 36.4 C 02/22/24 11:50 Pulse 79 02/22/24 11:50 Respiratory Rate 16 02/22/24 11:50 Respiratory Effort Normal 02/22/24 11:56 Blood Pressure 143/81 H 02/22/24 11:50 Blood Pressure Position Sitting 02/22/24 11:50 Pulse Oximetry 99 02/22/24 11:50 Oxygen Delivery Method Room Air 02/22/24 11:50 Oxygen Flow Rate 0 02/22/24 11:50 Pain Level 5 02/22/24 11:50 Medical Decision Making Patient is a pleasant 33-year-old female presenting today with chief complaint of right lower quadrant pain. She has had pain like this historically and was seen on Friday by [facility]. They believe that this is associated with ovarian issue. Patient was seen here in November for similar pain and at that time CT scan was without significant abnormality. She denies any fevers or chills. No pain or increased frequency or urgency with urination. No change in bowel habits. States that pain peaked yesterday evening and is starting to improve now. She reports that [facility] has scheduled an outpatient pelvic ultrasound for further evaluation of possible ovarian cyst versus scar tissue associated with previous C-sections. However, she had been advised of pain increased to come to the emergency department prompting her to come in today. On exam, patient appears nontoxic. He is resting comfortably no acute distress. She has no CVA tenderness. No pain over McBurney's point, negative Christianson sign. Pain is quite low and patient reports that this time around the pain has been low into her pelvis. We were able to obtain a pelvic ultrasound which shows an involuting cyst but no free fluid or other acute abnormality. No evidence to suggest torsion. As the patient is a pain seems to be intermittent over the months, associated with periods of ovulation, I agree with the [facility] that this is likely associated with ovarian pathology although there is not anything acute that need surgical intervention at this time. This may be associated with the cyst that was seen on the ultrasound versus the scar tissue that was previously mentioned by [facility]. Her exam and history are not suggestive of acute appendicitis, acute cholecystitis. She not having any changes with food. She is no to CVA tenderness to suggest a pyelonephritis. Patient feels comfortable going home, will discharge with follow-up plan for [facility]. She will call tomorrow morning to schedule follow-up appointment. Return precautions were discussed. All of her questions and concerns were addressed and she is agreement this plan. UA returns after patient left, called and discussed. Appears slightly contaminated. She has blood in urine which is baseline, advised she discuss further with OBGYN Quality:SDOH Health Related Social Needs: No Data to Display PFSH All Active Problems (Updated 02/22/24 @ 13:24 by LUPE Pñia) Right lower quadrant pain (Acute) BMI 31.0-31.9,adult (Acute) Medical History (Updated 02/22/24 @ 13:24 by LUPE Pñia) Wound dehiscence, Superficial dehiscence treated with silver nitrate and Aquacel Vaginal wall cyst 2 mm, right apex near to the cervix Spontaneous 01/2019 and 08/2019 Seasonal allergic rhinitis Surgical History (Updated 02/20/24 @ 14:08 by Sujey Ornelas DO) Status post repeat low transverse section Previous section Status post arthroscopic knee surgery H/O knee surgery congenital plica Family History Mother , colon CA at age 61 Colon cancer Mets to liver, age 61 Thyroid disease Graves disease - resolved spontaneously Father , age 73 Hypertension Heart disease Lewy body dementia COPD (chronic obstructive pulmonary disease) Brother Thyroid disease paternal 1/2 brother Social History Smoking/Tobacco Use Status: Never Smoking risk assessment performed?: Yes Alcohol Intake: never Drug use: Never Substance use type: does not use Do you feel safe at home: Yes Do you feel safe in your relationship?: Yes Female Reproductive History Menstrual control method: none History History 4 Para 2 Hx # Term Pregnancies 2 Multiple births 0 Hx # Pregnancies 0 Ectopic pregnancies 0 AB induced 0 Hx Number of Living Children 2 AB spontaneous 2 Past Pregnancies Del. Date GA/Weeks # Preg Succ Route Wgt Sex Labor Lgth Anesth esia Location [facility] 01/09/21 41 No Yes 3665.593 g Male 24 regional [facility] - Dr Ornelas 08/14/22 39 No Yes 3905.005 g Male KJ Delivery Date: 01/09/21 Last Updated by: Griselda Cruz IOL postdates, miso, balloon, pushed x2.5 hrs, arrest of descent, C/S
[2024-02-22 13:34] LABS: Bilirubin Negative (Negative); Blood Trace-intact (Negative); Clarity Clear (Clear); Glucose Negative (Negative); Ketones Negative (Negative); Leukocyte Esterase Negative (Negative); Nitrite Negative (Negative); Urobilinogen 0.2 mg/dL (Up to 0.2)
[2024-02-22 13:45] LABS: Bacteria Rare HPF (Negative); C & S Indicated? No; Crystals Negative HPF (Negative); Epithelial Cells Rare HPF (Negative); Mucus Negative (Negative); RBC 0-2 HPF (0-2); WBC Negative HPF (0-5)
--- NOTE | 2024-02-22 14:39 | DI.VRAD_ITS ---
PROCEDURE INFORMATION: Exam: US Pelvis Transabdominal, Complete, and US Pelvis Transvaginal, Non-obstetric Exam date and time: 02/22/2024 12:46 PM Age: 33 years old Clinical indication: Pelvic pain; Prior surgery; Surgery date: 6+ months; Surgery type: 2 c-sections TECHNIQUE: Imaging protocol: Real-time complete transabdominal and transvaginal pelvic ultrasound (non-obstetric) with image documentation. Transvaginal imaging was used for better evaluation of the endometrium, adnexa, and/or cervix. COMPARISON: CT ABDOMEN PELVIS W 11/27/2023 5:04 PM FINDINGS: Uterus: Uterus is normal. Endometrial stripe is normal. Right ovary/adnexa: Ovary is normal. No mass. Normal arterial and venous waveforms on duplex. Left ovary/adnexa: Ovary is normal. No mass. Normal arterial and venous waveforms on duplex. Intraperitoneal space: No intraperitoneal fluid. Urinary bladder: Normal. IMPRESSION: No acute findings. Dictated and Authenticated by: Anali Garcia MD. Ordering:MARCELINO Petersen MD
== END 2024-02-22 13:50 | disposition home or self-care (01) ==
PROVIDERS: Emergency Provider Physician Assistant
DX: R10.31 Right lower quadrant pain (principal); N83.201 Unspecified ovarian cyst, right side; N83.202 Unspecified ovarian cyst, left side
CPT/HCPCS: 81025; 99284; 76830; 76856; 81003; 81015; 99283

== ENCOUNTER 2024-09-04 11:26 | Outpatient (REF) | payer BC, SELFPAY ==
[2024-09-04 16:39] LABS: Bilirubin Negative (Negative); Blood Small (Negative); Clarity Cloudy (Clear); Glucose Negative (Negative); Ketones Negative (Negative); Leukocyte Esterase Negative (Negative); Nitrite Negative (Negative); Urobilinogen 0.2 mg/dL (Up to 0.2); pH 5.5 (5-8)
[2024-09-04 17:12] LABS: Bacteria Many HPF (Negative); C & S Indicated? No; Casts Negative LPF (Negative); Crystals Negative HPF (Negative); Epithelial Cells Rare HPF (Negative); Mucus Negative (Negative); RBC 0-2 HPF (0-2); WBC 0-2 HPF (0-5)
== END 2024-09-04 11:27 | disposition home or self-care (01) ==
LOC: LBN 11:26
PROVIDERS: Visit Provider Physician Assistant
DX: N39.0 Urinary tract infection, site not specified (principal); R35.0 Frequency of micturition
CPT/HCPCS: 81003; 81015; 87480; 87510; 87660

== ENCOUNTER 2024-09-11 14:09 | Outpatient (REF) | payer BC, SELFPAY ==
[2024-09-11 15:58] LABS: Bilirubin Negative (Negative); Blood Trace-intact (Negative); Clarity Clear (Clear); Glucose Negative (Negative); Ketones Negative (Negative); Leukocyte Esterase Negative (Negative); Nitrite Negative (Negative); Specific Gravity 1.015 (1.005-1.025); Urobilinogen 0.2 mg/dL (Up to 0.2)
[2024-09-11 16:25] LABS: Bacteria Negative HPF (Negative); C & S Indicated? No; Crystals Negative HPF (Negative); Epithelial Cells Rare HPF (Negative); Mucus Negative (Negative); RBC 0-2 HPF (0-2); WBC Negative HPF (0-5)
== END 2024-09-11 14:10 | disposition home or self-care (01) ==
LOC: LBN 14:09
PROVIDERS: Visit Provider Physician Assistant
DX: R30.0 Dysuria (principal)
CPT/HCPCS: 81003; 81015

== ENCOUNTER 2025-03-23 10:08 | Outpatient (REF) | payer BC, SELFPAY ==
[2025-03-23 11:23] LABS: Glucose Negative (Negative)
[2025-03-23 11:32] LABS: C & S Indicated? No; RBC 0-2 HPF (0-2); WBC Negative HPF (0-5)
== END 2025-03-23 10:09 | disposition home or self-care (01) ==
LOC: LBN 10:08
PROVIDERS: PCP Nurse Practitioner Family; Visit Provider Nurse Practitioner Gerontology
DX: R31.9 Hematuria, unspecified (principal)
CPT/HCPCS: 81003; 81015